=== PATIENT | male | born 1940 | race Caucasian/White ===

== ENCOUNTER → 2018-06-27 | Outpatient (CLI) | payer BC ==
--- NOTE | 2018-06-27 21:33 | MR ---
EXAMINATION TYPE: MR hip RT wo con DATE OF EXAM: 06/27/2018 COMPARISON: None HISTORY: Rt hip pain, osteoarthritis Standard multiplanar, multisequence MRI departmental protocol Multiplanar, multisequence images of the pelvis focusing on the right hip were acquired. FINDINGS: There is artifact from left hip surgery making evaluation of this level suboptimal. There is advanced degenerative change in the right hip with marked axial joint space loss. There is n ear [id number] formation. There is some flattening of the femoral head with serpiginous low T1 sign al paracoronal image 8 that shows T2 hyperintensity in the superior femoral head. No fragmented bony fragments clearly seen. Anterior 2.2 x 1.8 cm fluid collection at this level is presumed bursal in et iology with some internal debris, and measures 4.5 cm long axis coronal image 2. No increased fluid s ignal surrounds greater or lesser trochanters. Small joint effusion is noted. There is symmetric atrophy of the bilateral thigh muscles. Visualized pelvis shows no bowel dilatatio n. Prostate gland is not enlarged. Bladder is poorly distended. No groin hernias or adenopathy is not ed. 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
== END | disposition home or self-care (01) ==
LOC: RADMRIMAIN 16:20
PROVIDERS: ATTEND Internal Medicine Rheumatology
DX: M16.11 Unilateral primary osteoarthritis, right hip (principal); M71.551 Other bursitis, not elsewhere classified, right hip; M87.851 Other osteonecrosis, right femur

== ENCOUNTER → 2018-08-18 | Outpatient (CLI) | payer MEDICARE, BC ==
[2018-08-18 11:06] LABS: Anisocytosis Slight; HCT 41.6 % (39.0-53.0); HGB 13.4 gm/dL (13.0-17.5); MCH 32.8 pg (25.0-35.0); MCHC 32.2 g/dL (31.0-37.0); Macrocytosis Slight; Mean Platelet Volume 6.7; Platelet Count 414 k/uL (150-450); RBC 4.08 m/uL (4.30-5.90); RDW 16.5 % (11.5-15.5); WBC 11.2 k/uL (3.8-10.6)
[2018-08-18 11:13] LABS: Appearance,Urine Clear (Clear); Bilirubin,Urine Negative (Negative); Blood,Urine Negative (Negative); Color,Urine Yellow; Glucose,Urine (UA) Negative (Negative); Hyaline Casts,Urine 1 /lpf (0-2); Ketones,Urine Negative (Negative); Leukocyte Esterase,Urine Negative (Negative); Mucus,Urine Rare /hpf; Nitrite,Urine Negative (Negative); PH, Urine 6.5 (5.0-8.0); Protein,Urine 1+ (Negative); Squamous Epithelial Cell,Urine <1 /hpf (0-4); WBC,Urine 2 /hpf (0-5)
[2018-08-18 11:14] LABS: INR 0.9 (<1.2); Partial Thromboplastin Time 23.6 sec (22.0-30.0); Prothrombin Time 9.9 sec (9.0-12.0)
[2018-08-18 15:40] LABS: Anion Gap 10.5 mmol/L (4.00-12.00); Carbon Dioxide 27.5 mmol/L (21.6-31.8); Potassium 3.9 mmol/L (3.5-5.5)
== END ==
LOC: LABWHC1 10:26
PROVIDERS: ATTEND Orthopaedic Surgery
DX: Z01.818 Encounter for other preprocedural examination (principal); Z01.812 Encounter for preprocedural laboratory examination
CPT/HCPCS: 36415; 80051; 81001; 82565; 84520; 85027; 85610; 85730; 87070; 93005

== ENCOUNTER → 2018-09-01 | Outpatient (CLI) | payer MEDICARE, BC ==
--- NOTE | 2018-09-01 15:24 | XR ---
EXAMINATION TYPE: XR chest 2V DATE OF EXAM: 09/01/2018 COMPARISON: NONE HISTORY: Preoperative exam. History of tobacco abuse. TECHNIQUE: Frontal and lateral views of the chest are obtained. FINDINGS: There is no focal air space opacity, pleural effusion, or pneumothorax seen. There is inte rstitial prominence and pulmonary hyperinflation. The cardiac silhouette size is mildly enlarged. T he osseous structures are intact. Moderate multilevel degenerative changes of the thoracic spine are noted. IMPRESSION: 1. No focal consolidation to suggest pneumonia. 2. Interstitial prominence is reticular and may relate to subsegmental atelectasis however interstiti al lung disease is possible. 3. Findings suggesting COPD.
[2018-09-01 21:23] LABS: Hemoglobin A1C 6.3 % (4.0-6.0)
== END | disposition home or self-care (01) ==
LOC: LABWHC1 10:30
PROVIDERS: ATTEND Nurse Practitioner Family
DX: R91.8 Other nonspecific abnormal finding of lung field (principal); E11.9 Type 2 diabetes mellitus without complications; F17.200 Nicotine dependence, unspecified, uncomplicated
CPT/HCPCS: 36415; 71046; 83036

== ENCOUNTER → 2018-09-06 | Outpatient (CLI) | payer BC, MEDICARE | LOC: LABPAT 12:57 | PROVIDERS: ATTEND Orthopaedic Surgery | DX: Z01.812 Encounter for preprocedural laboratory examination (principal) | CPT/HCPCS: 36415; 86850; 86870; 86880; 86900; 86901 ==

== ENCOUNTER 2018-09-11 06:05 | Inpatient (IN) | payer MEDICARE, BC ==
[2018-09-05 14:01] VITALS: BMI 27.7
[~2018-09-11 06:05] MED LIST: ACETAMINOPHEN TAB 500 MG TAB PO ONE; CLINDAMYCIN 900 MG in DEXTROSE 5% IN WATER 50 ML IVPB ONE; ONDANSETRON 4 MG/2 ML VIAL IVP ONE; TRANEXAMIC ACID 1,000 MG in SODIUM CHLORIDE 0.9% 50 ML IVPB ONE; ceFAZolin IN SWFI 2 GM/20 ML SYRINGE IVP ONE
[2018-09-11] MEDS ORDERED: MIDAZOLAM (PF) 2 MG/2 ML VIAL IV PRN (06:21)
[2018-09-11] MEDS ORDERED: LACTATED RINGERS 1,000 ML IV SCH (06:21)
[2018-09-11] MEDS ORDERED: HYDROmorphone 0.5 MG/0.5 ML SYRINGE IVP PRN (06:21)
[2018-09-11] MEDS ORDERED: DEXAMETHASONE SOD PHOS (MDV) 100 MG/10 ML VIAL IV ONE (07:01)
[2018-09-11 07:09] LABS: Glucose,Whole Blood 114 mg/dL (75-99)
[2018-09-11 07:22] VITALS: BP 118/58; PULSE 68; RESP 18; TEMP 97.9
== END 2018-09-11 08:35 | disposition short-term general hospital (02) | DRG 554 ==
LOC: 2ORMAIN 06:05
PROVIDERS: ADMIT Orthopaedic Surgery; ATTEND Orthopaedic Surgery
DX: M16.11 Unilateral primary osteoarthritis, right hip (principal); I10 Essential (primary) hypertension; J44.9 Chronic obstructive pulmonary disease, unspecified; E78.5 Hyperlipidemia, unspecified; E11.9 Type 2 diabetes mellitus without complications; M06.9 Rheumatoid arthritis, unspecified; F17.200 Nicotine dependence, unspecified, uncomplicated; Z79.82 Long term (current) use of aspirin; Z79.84 Long term (current) use of oral hypoglycemic drugs; Z79.899 Other long term (current) drug therapy; Z88.0 Allergy status to penicillin; Z90.49 Acquired absence of other specified parts of digestive tract; Z53.09 Procedure and treatment not carried out because of other contraindication; R41.82 Altered mental status, unspecified
CPT/HCPCS: 36415; 86850; 86870; 86880; 86900; 86901

== ENCOUNTER 2018-09-11 08:42 | Inpatient (IN) | payer MEDICARE, BC ==
--- NOTE | 2018-09-11 09:17 | ED ---
General Adult HPI - General Chief complaint: Altered Mental Status Stated complaint: altered mental status Time Seen by Provider: 09/11/18 08:45 Source: patient, RN notes reviewed Mode of arrival: wheelchair Limitations: no limitations - History of Present Illness Initial comments: This is a 77-year-old male who presents emergency Department with altered mental status times one week. Family states he was here for a hip surgery when the conveyed to the staff upstairs in the OR that he had been altered for a week they decided to postpone the surgery and have them come down to get worked up. states she has not taken in to see anybody but has noted that over the last week he has become altered and confused sometimes being confused as to how to use his phone and also has become incontinent of urine over that period of time. Patient himself has had no complaints that are new. states his been no fever chills he does not appear to be have a cough there is been no shortness of breath. Patient has not complained of any chest pain or abdominal pain. states he has some increased fluid in his legs but that is been ongoing for 6 months. Patient states she has seen a apple checker for this increased edema. states at times his altered mental status does not appear to be as bad as other times. states his confusion is no worse today than it has been over the last week and she has not noted him to have any new complaints today or new symptoms today just what has been going on for the last week. Patient himself has no new complaints as far as pain or any new issues. - Related Data Home Medications Medication Instructions Recorded Confirmed Aspirin 81 mg PO DAILY 08/12/16 09/11/18 [place]-3 Fatty Acids/Fish Oil [Fish 1 each PO BID 08/12/16 09/11/18 Oil 1,000 mg Softgel] Simvastatin [Zocor] 80 mg PO HS 08/12/16 09/11/18 Ranitidine HCl [Zantac] 150 mg PO BID 08/13/16 09/11/18 Acetaminophen-Codeine 300-30mg 1 tab PO Q6H PRN 09/05/18 09/11/18 [Tylenol w/codeine #3] Adalimumab [Humira] 40 mg SQ Q14D 09/05/18 09/11/18 Atenolol [Tenormin] 50 mg PO DAILY 09/05/18 09/11/18 Calcium Carbonate [Calcium] 600 mg PO DAILY 09/05/18 09/11/18 Cholecalciferol (Vitamin D3) 2,000 unit PO DAILY 09/05/18 09/11/18 [Vitamin D3] Folic Acid 1 mg PO HS 09/05/18 09/11/18 Hydrochlorothiazide [Hydrodiuril] 25 mg PO DAILY 09/05/18 09/11/18 Ipratropium/Albuterol Sulfate 1 puff INHALATION RT-QID 09/05/18 09/11/18 [Combivent Respimat Inhaler] Methotrexate Sodium [Methotrexate] 10 tab PO FR 09/05/18 09/11/18 Multivitamins, Thera [Multivitamin 1 tab PO DAILY 09/05/18 09/11/18 (formulary)] Polyethylene Glycol 3350 [Miralax] 17 gm PO DAILY PRN 09/05/18 09/11/18 Potassium Chloride [Klor-Con 20] 20 meq PO DAILY 09/05/18 09/11/18 Sennosides-Docusate Sodium 1 tab PO BID PRN 09/05/18 09/11/18 [Senokot-S] guaiFENesin-DM 600/30MG [Mucinex 1 each PO Q12HR 09/05/18 09/11/18 Dm] metFORMIN HCL ER [Glucophage Xr] 500 mg PO DAILY 09/05/18 09/11/18 traMADol HCl [Ultram] 50 mg PO Q8H PRN 09/05/18 09/11/18 Allergies Allergy/AdvReac Type Severity Reaction Status Date / Time Penicillins Allergy Swelling Verified 09/11/18 09:00 Review of Systems ROS Statement: Those systems with pertinent positive or pertinent negative responses have been documented in the HPI. ROS Other: All systems not noted in ROS Statement are negative. Past Medical History Past Medical History: COPD, Diabetes Mellitus, Hyperlipidemia, Hypertension, Osteoarthritis (OA), Rheumatoid Arthritis (RA) Additional Past Medical History / Comment(s): cristino pitting edema cristino feet History of Any Multi-Drug Resistant Organisms: None Reported Past Surgical History: Cholecystectomy, Orthopedic Surgery Additional Past Surgical History / Comment(s): 08/17/16 acromioplasty excision distal clavicle rotator cuff repair R shoulder. Other surgical hx; repair abdominal aortic aneurysm, ORIF left femur Past Anesthesia/Blood Transfusion Reactions: No Reported Reaction Past Psychological History: No Psychological Hx Reported Smoking Status: Current every day smoker Past Alcohol Use History: None Reported Past Drug Use History: None Reported - Past Family History Mother Family Medical History: No Reported History Father Additional Family Medical History / Comment(s): Father had a significant heart murmur. General Exam - General Exam Comments Initial Comments: GENERAL: Patient is well-developed and well-nourished. Patient is nontoxic and well- hydrated and is in mild distress. ENT: Neck is soft and supple. No significant lymphadenopathy is noted. Oropharynx is clear. Moist mucous membranes. Neck has full range of motion without eliciting any pain. EYES: The sclera were anicteric and conjunctiva were pink and moist. Extraocular movements were intact and pupils were equal round and reactive to light. Eyelids were unremarkable. PULMONARY: Unlabored respirations. Good breath sounds bilaterally. No audible rales rhonchi or wheezing was noted. CARDIOVASCULAR: There is a regular rate and rhythm without any murmurs gallops or rubs. ABDOMEN: Soft and nontender with normal bowel sounds. No palpable organomegaly was noted. There is no palpable pulsatile mass. SKIN: Skin is clear with no lesions or rashes and otherwise unremarkable. NEUROLOGIC: Patient is alert and oriented 2. Cranial nerves II through XII are grossly intact. Motor and sensory are also intact. Normal speech, volume and content. Symmetrical smile. MUSCULOSKELETAL: Normal extremities with adequate strength and full range of motion. 2+ edema LYMPHATICS: No significant lymphadenopathy is noted PSYCHIATRIC: Normal psychiatric evaluation. Limitations: no limitations Course Vital Signs 09/11/18 09/11/18 09/11/18 08:47 09:00 10:00 Temperature 98.2 F Pulse Rate 75 77 71 Respiratory 18 18 18 Rate Blood Pressure 105/60 105/60 101/51 O2 Sat by Pulse 96 97 98 Oximetry 09/11/18 11:00 Temperature Pulse Rate 64 Respiratory 18 Rate Blood Pressure 95/49 O2 Sat by Pulse 96 Oximetry Medical Decision Making - Medical Decision Making EKG shows normal sinus rhythm at 76 bpm PA interval is 160 QRS is 86 QT interval 384 QTC is 432. Patient's EKG shows no ST segment elevation or depression or T wave abnormalities are noted. Chest x-ray shows a pneumonia at the left base. Patient's CAT scan of head was normal. Started the patient antibiotics. I spoke with the admitting physician Dr. Farr he agreed to admit the patient admitted the patient wrote admitting orders. I continued antibiotics on the floor and I consult to Dr. Petersen for pulmonary. - Lab Data Result diagrams: 09/11/18 10:00 09/11/18 10:00 Lab Results 09/11/18 09/11/18 09/11/18 Range/Units 10:00 10:00 10:00 WBC 14.1 H (3.8-10.6) k/uL RBC 3.71 L (4.30-5.90) m/uL Hgb 12.3 L (13.0-17.5) gm/dL Hct 37.5 L (39.0-53.0) % MCV 101.1 H (80.0-100.0) fL MCH 33.0 (25.0-35.0) pg MCHC 32.7 (31.0-37.0) g/dL RDW 15.0 (11.5-15.5) % Plt Count 392 (150-450) k/uL Neutrophils % 86 % Lymphocytes % 6 % Monocytes % 3 % Eosinophils % 1 % Basophils % 1 % Neutrophils # 12.1 H (1.3-7.7) k/uL Lymphocytes # 0.9 L (1.0-4.8) k/uL Monocytes # 0.5 (0-1.0) k/uL Eosinophils # 0.2 (0-0.7) k/uL Basophils # 0.1 (0-0.2) k/uL Macrocytosis Slight PT 10.3 (9.0-12.0) sec INR 1.0 (<1.2) APTT 24.2 (22.0-30.0) sec Sodium (137-145) mmol/L Potassium (3.5-5.1) mmol/L Chloride (98-107) mmol/L Carbon Dioxide (22-30) mmol/L Anion Gap mmol/L BUN (9-20) mg/dL Creatinine (0.66-1.25) mg/dL Est GFR (CKD-EPI)AfAm (>60 ml/min/1.73 sqM) Est GFR (CKD-EPI)NonAf (>60 ml/min/1.73 sqM) Glucose (74-99) mg/dL Calcium (8.4-10.2) mg/dL Total Bilirubin (0.2-1.3) mg/dL AST (17-59) U/L ALT (21-72) U/L Alkaline Phosphatase (38-126) U/L Total Creatine Kinase 34 L (55-170) U/L CK-MB (CK-2) 0.7 (0.0-2.4) ng/mL CK-MB (CK-2) Rel Index 2.1 Troponin I <0.012 (0.000-0.034) ng/mL Total Protein (6.3-8.2) g/dL Albumin (3.5-5.0) g/dL Urine Color Urine Appearance (Clear) Urine pH (5.0-8.0) Ur Specific [place] (1.001-1.035) Urine Protein (Negative) Urine Glucose (UA) (Negative) Urine Ketones (Negative) Urine Blood (Negative) Urine Nitrite (Negative) Urine Bilirubin (Negative) Urine Urobilinogen (<2.0) mg/dL Ur Leukocyte Esterase (Negative) Urine Opiates Screen (NotDetected) Ur Oxycodone Screen (NotDetected) Urine Methadone Screen (NotDetected) Ur Propoxyphene Screen (NotDetected) Ur Barbiturates Screen (NotDetected) U Tricyclic Antidepress (NotDetected) Ur Phencyclidine Scrn (NotDetected) Ur Amphetamines Screen (NotDetected) U Methamphetamines Scrn (NotDetected) U Benzodiazepines Scrn (NotDetected) Urine Cocaine Screen (NotDetected) U Marijuana (THC) Screen (NotDetected) 09/11/18 09/11/18 Range/Units 10:00 12:35 WBC (3.8-10.6) k/uL RBC (4.30-5.90) m/uL Hgb (13.0-17.5) gm/dL Hct (39.0-53.0) % MCV (80.0-100.0) fL MCH (25.0-35.0) pg MCHC (31.0-37.0) g/dL RDW (11.5-15.5) % Plt Count (150-450) k/uL Neutrophils % % Lymphocytes % % Monocytes % % Eosinophils % % Basophils % % Neutrophils # (1.3-7.7) k/uL Lymphocytes # (1.0-4.8) k/uL Monocytes # (0-1.0) k/uL Eosinophils # (0-0.7) k/uL Basophils # (0-0.2) k/uL Macrocytosis PT (9.0-12.0) sec INR (<1.2) APTT (22.0-30.0) sec Sodium 137 (137-145) mmol/L Potassium 4.1 (3.5-5.1) mmol/L Chloride 104 (98-107) mmol/L Carbon Dioxide 27 (22-30) mmol/L Anion Gap 6 mmol/L BUN 23 H (9-20) mg/dL Creatinine 0.96 (0.66-1.25) mg/dL Est GFR (CKD-EPI)AfAm 88 (>60 ml/min/1.73 sqM) Est GFR (CKD-EPI)NonAf 76 (>60 ml/min/1.73 sqM) Glucose 126 H (74-99) mg/dL Calcium 9.5 (8.4-10.2) mg/dL Total Bilirubin 1.0 (0.2-1.3) mg/dL AST 23 (17-59) U/L ALT 33 (21-72) U/L Alkaline Phosphatase 37 L (38-126) U/L Total Creatine Kinase (55-170) U/L CK-MB (CK-2) (0.0-2.4) ng/mL CK-MB (CK-2) Rel Index Troponin I (0.000-0.034) ng/mL Total Protein 5.8 L (6.3-8.2) g/dL Albumin 2.9 L (3.5-5.0) g/dL Urine Color Yellow Urine Appearance Clear (Clear) Urine pH 5.5 (5.0-8.0) Ur Specific [place] 1.021 (1.001-1.035) Urine Protein Trace H (Negative) Urine Glucose (UA) Negative (Negative) Urine Ketones 1+ H (Negative) Urine Blood Negative (Negative) Urine Nitrite Negative (Negative) Urine Bilirubin Negative (Negative) Urine Urobilinogen 2.0 (<2.0) mg/dL Ur Leukocyte Esterase Negative (Negative) Urine Opiates Screen Detected H (NotDetected) Ur Oxycodone Screen Not Detected (NotDetected) Urine Methadone Screen Not Detected (NotDetected) Ur Propoxyphene Screen Not Detected (NotDetected) Ur Barbiturates Screen Not Detected (NotDetected) U Tricyclic Antidepress Not Detected (NotDetected) Ur Phencyclidine Scrn Not Detected (NotDetected) Ur Amphetamines Screen Not Detected (NotDetected) U Methamphetamines Scrn Not Detected (NotDetected) U Benzodiazepines Scrn Not Detected (NotDetected) Urine Cocaine Screen Not Detected (NotDetected) U Marijuana (THC) Screen Not Detected (NotDetected) Disposition Clinical Impression: Pneumonia, Altered mental status Disposition: ADMITTED IP TO THIS HOSP Referrals: Jaime Gavin MD [Primary Care Provider] - 1-2 days Time of Disposition: 13:32
[2018-09-11 10:22] LABS: Basophils # (A) 0.1 k/uL (0-0.2); Basophils % (A) 1 %; Eosinophils # (A) 0.2 k/uL (0-0.7); Eosinophils % (A) 1 %; HCT 37.5 % (39.0-53.0); HGB 12.3 gm/dL (13.0-17.5); Lymphocytes # (A) 0.9 k/uL (1.0-4.8); Lymphocytes % (A) 6 %; MCHC 32.7 g/dL (31.0-37.0); MCV 101.1 fL (80.0-100.0); Macrocytosis Slight; Mean Platelet Volume 6.8; Monocytes # (A) 0.5 k/uL (0-1.0); Monocytes % (A) 3 %; Neutrophils # (A) 12.1 k/uL (1.3-7.7); Neutrophils % (A) 86 %; Platelet Count 392 k/uL (150-450); RBC 3.71 m/uL (4.30-5.90); WBC 14.1 k/uL (3.8-10.6)
--- NOTE | 2018-09-11 10:28 | XR ---
EXAMINATION TYPE: XR chest 2V DATE OF EXAM: 09/11/2018 COMPARISON: Chest x-ray 10 days ago. HISTORY: Altered mental status and weakness. TECHNIQUE: Frontal and lateral views of the chest are obtained. FINDINGS: There is persistent interstitial prominence bilaterally most prominent in the bases with sl ightly more prominent left basilar opacity. There is new small left pleural effusion. Cardiac silho uette size is stable and upper limits of normal with atherosclerotic change in thoracic aorta. The os seous structures are demineralized. Multilevel spurring in the spine is redemonstrated. IMPRESSION: Interstitial changes favor chronic fibrosis most prominent in the bases with new small l eft pleural effusion and developing left basilar acute infiltrate and/or atelectasis noted.
[2018-09-11 10:29] LABS: Partial Thromboplastin Time 24.2 sec (22.0-30.0); Prothrombin Time 10.3 sec (9.0-12.0)
--- NOTE | 2018-09-11 10:30 | CT ---
EXAMINATION TYPE: CT brain wo con DATE OF EXAM: 09/11/2018 HISTORY: Altered mental status, confusion for [address] DLP: 1086.4 mGycm. Automated Exposure Control for Dose Reduction was Utilized. TECHNIQUE: CT scan of the head is performed without contrast. COMPARISON: None. FINDINGS: There is no acute intracranial hemorrhage or midline shift identified. There is diffuse v entricular and sulcal prominence consistent with diffuse age-related cerebral atrophy. There is low- attenuation in the periventricular white matter consistent with chronic small vessel ischemic change. Scleral calcification both globes is present. Visualized paranasal sinuses show near complete opac ification of left sphenoid sinus otherwise are clear. Suspect mild to moderate mucosal thickening wit h large mucous retention cyst or polyp. Vascular calcification distal internal carotid arteries bilat erally is present. IMPRESSION: No acute intracranial hemorrhage or midline shift. There is mild to moderate diffuse ag e-related cerebral atrophy and mild chronic small vessel ischemic change noted.
[2018-09-11 10:32] LABS: Creatine Kinase 34 U/L (55-170)
[2018-09-11 10:45] LABS: Creatine Kinase MB 0.7 ng/mL (0.0-2.4); Troponin I <0.012 ng/mL (0.000-0.034)
[2018-09-11 11:11] LABS: Albumin 2.9 g/dL (3.5-5.0); Calcium 9.5 mg/dL (8.4-10.2); Potassium 4.1 mmol/L (3.5-5.1); Total Protein 5.8 g/dL (6.3-8.2)
[2018-09-11 13:06] LABS: Appearance,Urine Clear (Clear); Bilirubin,Urine Negative (Negative); Blood,Urine Negative (Negative); Color,Urine Yellow; Glucose,Urine (UA) Negative (Negative); Ketones,Urine 1+ (Negative); Leukocyte Esterase,Urine Negative (Negative); Nitrite,Urine Negative (Negative); PH, Urine 5.5 (5.0-8.0); Protein,Urine Trace (Negative); Specific Gravity,Urine 1.021 (1.001-1.035)
[2018-09-11 13:18] LABS: Cocaine Screen,Urine Not Detected (NotDetected); Opiate Screen,Urine Detected (NotDetected); Phencyclidine Screen,Urine Not Detected (NotDetected); Urn Cannabinoid Scrn Not Detected (NotDetected)
[2018-09-11 13:19] LABS: Amphetamine Screen,Urine Not Detected (NotDetected); Barbiturate Screen,Urine Not Detected (NotDetected); Benzodiazepines Screen,Urine Not Detected (NotDetected); Methadone Screen, Urine Not Detected (NotDetected); Oxycodone Screen, Urine Not Detected (NotDetected); Tricyclic Antidepressant,Urine Not Detected (NotDetected)
[2018-09-11] MEDS ORDERED: cefTRIAXone 2,000 MG in SODIUM CHLORIDE 0.9% 100 ML IVPB STA (13:27)
[2018-09-11] MEDS ORDERED: AZITHROMYCIN 500 MG in SODIUM CHLORIDE 0.9% 250 ML IVPB STA (13:33)
[2018-09-11] MEDS ORDERED: PNEUMONIA PROTOCOL UTILIZED 1 EACH MISC PO PRN (13:33)
[2018-09-11] MEDS ORDERED: SENNOSIDES-DOCUSATE SODIUM 1 EACH TAB PO PRN (14:33)
[2018-09-11] MEDS ORDERED: traMADol 50 MG TAB PO PRN (14:33)
[2018-09-11] MEDS ORDERED: POLYETHYLENE GLYCOL 3350 17 GM POWD.PACK PO PRN (14:33)
[2018-09-11] MEDS: IPRATROPIUM-ALBUTEROL 3 ML NEB INHALATION SCH ×2 (15:19→22:10)
[2018-09-11 16:50] LABS: Glucose,Whole Blood 170 mg/dL (75-99)
[2018-09-11] MEDS: HYDROCHLOROTHIAZIDE 25 MG TAB PO SCH (18:02)
[2018-09-11] MEDS: ASPIRIN 81 MG PO SCH ×2 (18:02→18:05)
[2018-09-11] MEDS: metFORMIN 500 MG TAB PO SCH (18:03)
[2018-09-11] MEDS: MULTIVITAMINS, THERA 1 EACH TAB PO SCH (18:03)
[2018-09-11] MEDS: ATENOLOL 50 MG TAB PO SCH (18:03)
[2018-09-11] MEDS: INSULIN ASPART 100 UNIT/ML 1 ML 10 ML VIAL SQ SCH ×2 (18:41→22:47)
[2018-09-11] MEDS: ATORVASTATIN 40 MG TAB PO SCH (20:26)
[2018-09-11] MEDS: FOLIC ACID 1 MG TAB PO SCH (20:26)
[2018-09-11] MEDS: FAMOTIDINE 20 MG TAB PO SCH (20:27)
[2018-09-11] MEDS: guaiFENesin-DM 600/30MG 1 EACH TAB.ER.12H PO SCH (20:28)
[2018-09-11 21:34] LABS: Glucose,Whole Blood 157 mg/dL (75-99)
[2018-09-11] MEDS ORDERED: MAGNESIUM HYDROXIDE 2,400 MG/10 ML CUP PO PRN (22:27)
[2018-09-11] MEDS ORDERED: BISACODYL 5 MG TABLET.DR PO PRN (22:27)
[2018-09-11] MEDS ORDERED: LACTULOSE 20 GM/30 ML CUP PO PRN (22:27)
[2018-09-11] MEDS ORDERED: NALOXONE 0.4 MG/ML 1 ML VIAL IV PRN (22:27)
[2018-09-11] MEDS ORDERED: CALCIUM CARBONATE 500 MG CHEWABLE PO PRN (22:27)
[2018-09-11] MEDS ORDERED: MELATONIN 3 MG TABLET PO PRN (22:27)
[2018-09-11] MEDS ORDERED: ONDANSETRON 4 MG/2 ML VIAL IVP PRN (22:27)
[2018-09-11] MEDS: ENOXAPARIN 40 MG/0.4 ML SYRINGE SQ SCH (23:30)
--- NOTE | 2018-09-12 00:06 | HP ---
HISTORY AND PHYSICAL PRESENT COMPLAINT: Cough. HISTORY OF PRESENTING COMPLAINT: This is a pleasant 77-year-old patient who follows with Dr. Gavin. Chronic stable medical conditions include diabetes, COPD, hypertension, hyperlipidemia. The patient was scheduled to come in and have hip surgery done but the patient's conveyed to the staff in the OR that the patient has not been himself for about a week and somewhat confused. The patient was sent down to the ER for further workup. The patient had a cough. does not report any fever or chills. The patient does feel slightly short of breath. The patient was also noticed to have some increasing fluid in the lower extremity and patient has been seen by the golf course designer for the same. The patient has been a bit more confused. The patient's appetite has been okay. The patient really is not able to give much of a history except he can answer some questions, but he is not sure why he is here or what he is here for. REVIEW OF SYSTEMS: CONSTITUTIONAL: Tired. HEENT: None. RESPIRATORY: As above. CARDIOVASCULAR: Some edema. GASTROINTESTINAL: None. GENITOURINARY: None. MUSCULOSKELETAL: Arthritic pain in the joints. DERMATOLOGICAL: None. HEMATOLOGIC: None. LYMPHATICS: None. PSYCHIATRY: As above. NEUROLOGICAL: None. PAST MEDICAL HISTORY: Past medical history includes COPD, diabetes mellitus type 2, hyperlipidemia, hypertension, osteoarthritis, edema of the lower extremity, urinary incontinence. PAST SURGICAL HISTORY: Cholecystectomy, acromioplasty of distal clavicular rotator cuff on the right shoulder, repair of the abdominal aortic aneurysm, incisional hernia, ORIF of the left femur. SOCIAL HISTORY: The patient is retired. Smoked half to a pack a day for more than 50 years, now down to few cigarettes a day. Alcohol none. Patient is retired. FAMILY HISTORY: Reviewed, noncontributory to presentation. HOME MEDICATIONS: 1. Methotrexate 25 mg on Fridays. 2. Humira 40 mg subcu every 14 days. 3. Tylenol 3 one tablet every 6 hours p.r.n. 4. Multivitamin 1 tablet p.o. daily. 5. Combivent 1 puff q.i.d. 6. Tenormin 50 mg p.o. daily. 7. Aspirin 81 mg p.o. daily. 8. Ultram 50 mg every 8 hours p.r.n. 9. Glucophage XR 500 mg p.o. daily. 10.Mucinex DM 1 tablet p.o. every 12 hours. 11.Zocor 80 mg at bedtime. 12.Senokot S 1 tablet p.o. b.i.d. p.r.n. 13.Zantac 150 mg p.o. b.i.d. 14.Potassium 20 mEq a day. 15.MiraLAX 17 grams p.o. daily p.r.n. 16.Fish oil 1 tablet p.o. b.i.d. 17.Hydrochlorothiazide 25 mg p.o. daily. 18.Folic acid 1 mg p.o. at bedtime. 19.Vitamin D3, 2000 units p.o. daily. 20.Calcium 600 mg p.o. daily. ALLERGIES: PENICILLIN. PHYSICAL EXAMINATION: Temperature 98.2, pulse 75, respiratory rate 18, blood pressure 105/60, pulse ox 96% on room air. GENERAL APPEARANCE: Average build, lying in bed, not in distress. EYES: Pupils equal. Conjunctivae normal. HEENT: External appearance of ears and nose normal. Oral cavity normal. NECK: JVD not raised. Mass not palpable. Respiratory effort increased. LUNGS: Decreased breath sounds at the bases. Some questionable crackles. CARDIOVASCULAR: 1st and 2nd sound. Edema present. ABDOMEN: Soft, nontender. Liver and spleen not palpable. LYMPHATIC: No lymph nodes palpable in the neck or axilla. PSYCHIATRY: He cannot tell why exactly he is here or what place this is, but can answer some other questions. NEUROLOGICAL: Pupils equal. Cranial nerves grossly intact. Power and sensation grossly intact. MUSCULOSKELETAL: Evidence of osteoarthritis, especially in the hands. INVESTIGATIONS: White count 14.1, hemoglobin 12.3 potassium 4.1 BUN 22 creatinine 0.96. Accu-Cheks are noted. Chest x-ray film personally reviewed by me shows bilateral basal infiltrates and possible effusion. EKG tracing reviewed by me shows normal sinus rhythm. ASSESSMENT: 1. Basilar pneumonia suspect gram-negative organism, present on admission. 2. Evaluate the patient for congestive heart failure. 3. Diabetes mellitus type 2 on oral hypoglycemic. 4. Chronic obstructive pulmonary disease in a current smoker. 5. Chronic nicotine dependence, patient is a cigarette smoker. 6. Hyperlipidemia. 7. Essential hypertension. 8. Primary osteoarthritis. 9. Acute delirium, probably from underlying pneumonia, cannot rule out underlying cognitive impairment. PLAN: Home medications are resumed. Patient is started on IV ceftriaxone. Accu-Cheks will be followed. Will check a BNP in the morning and also do an echocardiogram. Also give IV Lasix 1 dose to see how patient responds to the same. Lovenox for DVT prophylaxis. Currently no family is present. The patient also put on bronchodilators. MMODL / IJN: [id number] /
[2018-09-12] MEDS: NICOTINE 21MG/24HR PATCH TRANSDERM SCH ×3 (05:40→22:58)
[2018-09-12] MEDS: IPRATROPIUM-ALBUTEROL 3 ML NEB INHALATION SCH ×4 (07:11→20:04)
[2018-09-12] MEDS: INSULIN ASPART 100 UNIT/ML 1 ML 10 ML VIAL SQ SCH ×4 (07:32→21:28)
[2018-09-12 07:33] LABS: Glucose,Whole Blood 101 mg/dL (75-99)
[2018-09-12] MEDS: FAMOTIDINE 20 MG TAB PO SCH ×2 (08:05→21:28)
[2018-09-12] MEDS: POTASSIUM CHLORIDE ER 20 MEQ TAB.ER PO SCH (08:05)
[2018-09-12] MEDS: metFORMIN 500 MG TAB PO SCH (08:05)
[2018-09-12] MEDS: MULTIVITAMINS, THERA 1 EACH TAB PO SCH (08:05)
[2018-09-12] MEDS: ATENOLOL 50 MG TAB PO SCH (08:05)
[2018-09-12] MEDS: HYDROCHLOROTHIAZIDE 25 MG TAB PO SCH (08:05)
[2018-09-12] MEDS: ASPIRIN 81 MG PO SCH (08:05)
[2018-09-12] MEDS: AZITHROMYCIN 500 MG TAB PO SCH (08:05)
[2018-09-12] MEDS: guaiFENesin-DM 600/30MG 1 EACH TAB.ER.12H PO SCH ×2 (08:46→21:34)
[2018-09-12 08:52] LABS: Basophils # (A) 0.1 k/uL (0-0.2); Basophils % (A) 1 %; Eosinophils # (A) 0.2 k/uL (0-0.7); Eosinophils % (A) 1 %; HCT 35.5 % (39.0-53.0); HGB 11.6 gm/dL (13.0-17.5); Hypochromasia Slight; Lymphocytes # (A) 2.5 k/uL (1.0-4.8); Lymphocytes % (A) 15 %; MCH 33.8 pg (25.0-35.0); MCHC 32.8 g/dL (31.0-37.0); MCV 103.2 fL (80.0-100.0); Macrocytosis Slight; Mean Platelet Volume 6.9; Monocytes # (A) 1.4 k/uL (0-1.0); Monocytes % (A) 9 %; Neutrophils # (A) 11.7 k/uL (1.3-7.7); Neutrophils % (A) 71 %; Platelet Count 436 k/uL (150-450); RBC 3.44 m/uL (4.30-5.90); RDW 15.1 % (11.5-15.5); WBC 16.6 k/uL (3.8-10.6)
[2018-09-12] MEDS ORDERED: FUROSEMIDE 10 MG/ML 4 ML VIAL IV SCH (09:00)
--- NOTE | 2018-09-12 10:03 | XR ---
EXAMINATION TYPE: XR chest 2V DATE OF EXAM: 09/12/2018 COMPARISON: Chest x-ray from yesterday and older x-ray 10 days ago. HISTORY: Pneumonia progress study. TECHNIQUE: Frontal and lateral views of the chest are obtained. FINDINGS: There is persistent reticular interstitial prominence bilaterally most prominent in the lo wer lungs. There is additional persistent posterior basilar opacity seen best on lateral view new fr om older x-ray. No pleural effusion or pneumothorax is present bilaterally. The cardiac silhouette si ze is stable and within normal limits with atherosclerotic thoracic aorta. The osseous structures a re demineralized. Multilevel spurring in thoracic spine is redemonstrated. IMPRESSION: Persistent posterior basilar acute infiltrate suspected on background chronic interstiti al changes. No significant change from most recent chest x-ray.
--- NOTE | 2018-09-12 10:30 | ECHOF ---
Referral Reason:chf MEASUREMENTS -------- HEIGHT: 172.7 cm WEIGHT: 85.7 kg BP: RVIDd: 2.8 cm (< 3.3) IVSd: 1.3 cm (0.6 - 1.1) LVIDd: 4.6 cm (3.9 - 5.3) LVPWd: 1.4 cm (0.6 - 1.1) IVSs: 1.6 cm LVIDs: 3.5 cm LVPWs: 1.7 cm LAESV Index (A-L): 22.68 ml/m Ao Diam: 3.3 cm (2.0 - 3.7) AV Cusp: 1.5 cm (1.5 - 2.6) LA Diam: 3.6 cm (2.7 - 3.8) MV EXCURSION: 20.130 mm (> 18.000) MV EF SLOPE: 79 mm/s (70 - 150) EPSS: 0.7 cm MV E Gennaro: 0.93 m/s MV DecT: 167 ms MV A Gennaro: 0.98 m/s MV E/A Ratio: 0.95 AV maxP.93 mmHg AV meanP.90 mmHg FINDINGS -------- Sinus rhythm. This was a techncally difficult study with suboptimal views, , Definity utilized for enhancement of i mages. The left ventricular size is normal. There is mild concentric left ventricular hypertrophy. Overa ll left ventricular systolic function is normal with, an EF between 55 - 60 %. The right ventricle is normal in size. The left atrial size is normal. The right atrial size is normal. 1.5MG OF DEFINITY UTLIZED: 2 OR MORE WALL SEGMENTS NOT VISUALIZED. The aortic valve was not well visualized. There is mild aortic stenosis present. Peak/mean gradie nt across the Aortic Valve is 19.93mmHg / 9.90mmHg. Mild mitral annular calcification present. Mild mitral regurgitation is present. Mild tricuspid regurgitation present. There is no evidence of pulmonary hypertension. The right v entricular systolic pressure, as measured by Doppler, is {RVSP}. The pulmonic valve was not well visualized. The aortic root size is normal. There is no pericardial effusion. CONCLUSIONS -------- 1. This was a techncally difficult study with suboptimal views, , Definity utilized for enhancement o f images. 2. The left ventricular size is normal. 3. There is mild concentric left ventricular hypertrophy. 4. Overall left ventricular systolic function is normal with, an EF between 55 - 60 %. 5. The right ventricle is normal in size. 6. The left atrial size is normal. 7. The right atrial size is normal. 8. 1.5MG OF DEFINITY UTLIZED: 2 OR MORE WALL SEGMENTS NOT VISUALIZED. 9. The aortic valve was not well visualized. 10. There is mild aortic stenosis present. 11. Peak/mean gradient across the Aortic Valve is 19.93mmHg / 9.90mmHg. 12. Mild mitral annular calcification present. 13. Mild mitral regurgitation is present. 14. Mild tricuspid regurgitation present. 15. There is no evidence of pulmonary hypertension. 16. The right ventricular systolic pressure, as measured by Doppler, is {RVSP}. 17. The pulmonic valve was not well visualized. 18. The aortic root size is normal. 19. There is no pericardial effusion. BANK SECRECY ACT OFFICER: Tasneem Corbett RDCS
[2018-09-12 12:39] LABS: Glucose,Whole Blood 104 mg/dL (75-99)
[2018-09-12 17:14] LABS: Glucose,Whole Blood 117 mg/dL (75-99)
[2018-09-12 21:18] LABS: Glucose,Whole Blood 153 mg/dL (75-99)
[2018-09-12] MEDS: FOLIC ACID 1 MG TAB PO SCH (21:28)
[2018-09-12] MEDS: ENOXAPARIN 40 MG/0.4 ML SYRINGE SQ SCH (21:28)
[2018-09-12] MEDS: ATORVASTATIN 40 MG TAB PO SCH (21:28)
[2018-09-12] MEDS: ALPRAZolam 0.25 MG TAB PO PRN (21:29)
[2018-09-12] MEDS: Acetaminophen-Codeine 300-30mg TAB PO PRN (21:29)
--- NOTE | 2018-09-13 00:22 | PN ---
PROGRESS NOTE DATE OF SERVICE: September 12, 2018 PRESENTING COMPLAINT: Short of breath. INTERVAL HISTORY: This patient who is due to go for hip surgery presented with bilateral pneumonia and also felt to be congestive heart failure. The patient is on antibiotics. Did get a dose of Lasix this morning. Feeling somewhat better this morning. Sitting up in a chair. is present. The patient also was delirious, somewhat better this morning. Still has got edema. Did tolerate some breakfast. does state that patient had quite a bit of cough at home. REVIEW OF SYSTEMS: Done for constitutional, cardiovascular, GI, pulmonary and relevant findings as above. CURRENT MEDICATIONS: Reviewed that include IV ceftriaxone. PHYSICAL EXAMINATION: VITAL SIGNS: Temperature 98.2, pulse 75, respiratory 18, blood pressure 105/60. Pulse ox 96% on room air. GENERAL APPEARANCE: Sitting up in a chair, more perky. EYES: Pupils equal. Conjunctivae normal. NECK: JVD raised. Mass not palpable. RESPIRATORY: Effort increased. Lungs, some basal crackles. CARDIOVASCULAR: 1st and 2nd sounds normal. No edema present. ABDOMEN: Soft, nontender. Liver and spleen not palpable. PSYCHIATRY: The patient is more oriented this morning, though not really back to normal. INVESTIGATIONS: White count 16.6, hemoglobin 11.6. ProBNP 2930. ASSESSMENT: 1. Bibasilar pneumonia suspect gram-negative organism present on admission. 2. Acute congestive heart failure exacerbation from diastolic dysfunction. Ejection fraction 55-60 percent. 3. Diabetes mellitus type 2 on oral hypoglycemic. 4. Chronic obstructive pulmonary disease in a current smoker. 5. Chronic nicotine dependence, patient is a cigarette smoker. 6. Hyperlipidemia. 7. Essential hypertension. 8. Primary osteoarthritis. 9. Acute delirium, likely from underlying pneumonia with some improvement. PLAN: We will put the patient on IV Lasix 40 mg q.8 for 3 doses. Antibiotics are to continue. Expect the patient to be in the hospital for another couple of days at least. Follow. MMODL / IJN: [id number] /
[2018-09-13] MEDS: FUROSEMIDE 10 MG/ML 4 ML VIAL IV SCH ×3 (06:12→21:07)
[2018-09-13] MEDS: ACETAMINOPHEN TAB 325 MG TAB PO PRN ×2 (06:12→16:21)
[2018-09-13] MEDS: IPRATROPIUM-ALBUTEROL 3 ML NEB INHALATION SCH ×4 (07:11→19:33)
[2018-09-13 07:34] LABS: Glucose,Whole Blood 100 mg/dL (75-99)
[2018-09-13] MEDS: INSULIN ASPART 100 UNIT/ML 1 ML 10 ML VIAL SQ SCH ×4 (08:06→21:07)
[2018-09-13] MEDS: ASPIRIN 81 MG PO SCH (08:20)
[2018-09-13] MEDS: FAMOTIDINE 20 MG TAB PO SCH ×2 (08:21→21:03)
[2018-09-13] MEDS: guaiFENesin-DM 600/30MG 1 EACH TAB.ER.12H PO SCH ×2 (08:21→21:07)
[2018-09-13] MEDS: POTASSIUM CHLORIDE ER 20 MEQ TAB.ER PO SCH (08:21)
[2018-09-13] MEDS: metFORMIN 500 MG TAB PO SCH (08:21)
[2018-09-13] MEDS: AZITHROMYCIN 500 MG TAB PO SCH (08:21)
[2018-09-13] MEDS: ATENOLOL 50 MG TAB PO SCH (08:21)
[2018-09-13 08:49] LABS: Basophils # (A) 0.1 k/uL (0-0.2); Basophils % (A) 1 %; Eosinophils # (A) 0.7 k/uL (0-0.7); Eosinophils % (A) 6 %; HCT 35.4 % (39.0-53.0); Lymphocytes # (A) 1.8 k/uL (1.0-4.8); Lymphocytes % (A) 16 %; MCV 99.9 fL (80.0-100.0); Macrocytosis Slight; Mean Platelet Volume 7.5; Monocytes # (A) 1.2 k/uL (0-1.0); Monocytes % (A) 10 %; Neutrophils # (A) 7.5 k/uL (1.3-7.7); Neutrophils % (A) 65 %; Platelet Count 461 k/uL (150-450); RBC 3.54 m/uL (4.30-5.90); RDW 14.9 % (11.5-15.5); WBC 11.6 k/uL (3.8-10.6)
[2018-09-13 09:03] LABS: Calcium 9.2 mg/dL (8.4-10.2); Potassium 3.7 mmol/L (3.5-5.1)
[2018-09-13 11:42] LABS: Glucose,Whole Blood 139 mg/dL (75-99)
[2018-09-13] MEDS: MULTIVITAMINS, THERA 1 EACH TAB PO SCH (12:42)
[2018-09-13 17:32] LABS: Glucose,Whole Blood 144 mg/dL (75-99)
[2018-09-13 20:32] LABS: Glucose,Whole Blood 169 mg/dL (75-99)
[2018-09-13] MEDS: FOLIC ACID 1 MG TAB PO SCH (21:03)
[2018-09-13] MEDS: ATORVASTATIN 40 MG TAB PO SCH (21:03)
[2018-09-13] MEDS: ENOXAPARIN 40 MG/0.4 ML SYRINGE SQ SCH (21:04)
[2018-09-13] MEDS: NICOTINE 21MG/24HR PATCH TRANSDERM SCH (21:04)
[2018-09-14] MEDS: ACETAMINOPHEN TAB 325 MG TAB PO PRN (01:49)
--- NOTE | 2018-09-14 01:59 | PN ---
PROGRESS NOTE DATE OF SERVICE: September 13, 2018. PRESENTING COMPLAINT: Short of breath. INTERVAL HISTORY: This patient was seen by me yesterday afternoon. Admitted with bilateral pneumonia and CHF exacerbation. Ejection fraction is currently preserved. The patient's edema is going down. Patient did diurese well. The patient's and daughter are present. The patient does seem to have underlying cognitive impairment. Delirium is somewhat better. Did tolerate his diet, sitting up in a chair. REVIEW OF SYSTEMS: Done for constitutional, cardiovascular, GI, pulmonary; relevant findings as above. CURRENT MEDICATIONS: Reviewed that include IV ceftriaxone and IV Lasix that was given yesterday. PHYSICAL EXAMINATION: VITAL SIGNS: Temperature 97.9, pulse 80, respiration 16, blood pressure 114/69. Pulse ox 93% on room air. GENERAL APPEARANCE: Sitting up in a chair, feeling looking better. EYES: Pupils equal. Conjunctivae normal. NECK: JVD not raised. Mass not palpable. RESPIRATORY: Effort increased. Lungs, some basal crackles. CARDIOVASCULAR: 1st and 2nd sounds normal. Decreased edema. ABDOMEN: Soft, nontender. Liver and spleen not palpable. PSYCHIATRY: The patient is able answer some questions. Sometimes he is slow. INVESTIGATIONS: No blood work from today. Accu-Cheks are noted. ASSESSMENT: 1. Bibasilar pneumonia suspect gram-negative organism present on admission with clinical response. 2. Acute congestive heart failure exacerbation from diastolic dysfunction EF 55-60 percent improving. 3. Diabetes mellitus type 2 on oral hypoglycemia. 4. Chronic obstructive pulmonary disease in a current smoker. 5. Chronic nicotine dependence, patient is a cigarette smoker. 6. Hyperlipidemia. 7. Essential hypertension. 8. Primary osteoarthritis. 9. Acute delirium, likely underlying pneumonia with some improvement. 10.Suspect underlying mild cognitive impairment. PLAN: The patient's care was discussed at length with the patient and and family. Continue with IV antibiotics. We will give another dose of IV Lasix in the morning. Repeat a chest x-ray, BNP, CBC in the morning and determine from there. MMODL / IJN: [id number] /
[2018-09-14] MEDS: INSULIN ASPART 100 UNIT/ML 1 ML 10 ML VIAL SQ SCH ×4 (07:18→22:19)
[2018-09-14 07:20] LABS: Glucose,Whole Blood 123 mg/dL (75-99)
[2018-09-14] MEDS: POTASSIUM CHLORIDE ER 20 MEQ TAB.ER PO SCH (07:55)
[2018-09-14] MEDS: guaiFENesin-DM 600/30MG 1 EACH TAB.ER.12H PO SCH ×2 (07:55→22:07)
[2018-09-14] MEDS: ASPIRIN 81 MG PO SCH (07:55)
[2018-09-14] MEDS: MULTIVITAMINS, THERA 1 EACH TAB PO SCH (07:55)
[2018-09-14] MEDS: ATENOLOL 50 MG TAB PO SCH (07:55)
[2018-09-14] MEDS: AZITHROMYCIN 500 MG TAB PO SCH (07:55)
[2018-09-14] MEDS: FAMOTIDINE 20 MG TAB PO SCH ×2 (07:55→22:07)
[2018-09-14] MEDS: metFORMIN 500 MG TAB PO SCH (07:55)
[2018-09-14] MEDS: Acetaminophen-Codeine 300-30mg TAB PO PRN ×2 (08:40→16:44)
[2018-09-14] MEDS: IPRATROPIUM-ALBUTEROL 3 ML NEB INHALATION SCH ×4 (08:45→20:55)
[2018-09-14] MEDS ORDERED: FUROSEMIDE 10 MG/ML 4 ML VIAL IV SCH (09:00)
[2018-09-14 09:35] LABS: Basophils # (A) 0.2 k/uL (0-0.2); Basophils % (A) 1 %; Eosinophils # (A) 0.7 k/uL (0-0.7); Eosinophils % (A) 6 %; HCT 40.4 % (39.0-53.0); HGB 13.4 gm/dL (13.0-17.5); Lymphocytes # (A) 1.8 k/uL (1.0-4.8); Lymphocytes % (A) 15 %; MCH 33.1 pg (25.0-35.0); MCHC 33.1 g/dL (31.0-37.0); Macrocytosis Slight; Mean Platelet Volume 6.9; Monocytes # (A) 0.9 k/uL (0-1.0); Monocytes % (A) 8 %; Neutrophils # (A) 7.8 k/uL (1.3-7.7); Neutrophils % (A) 66 %; Platelet Count 547 k/uL (150-450); RBC 4.04 m/uL (4.30-5.90); WBC 11.8 k/uL (3.8-10.6)
[2018-09-14 10:04] LABS: Calcium 9.6 mg/dL (8.4-10.2)
[2018-09-14 11:47] LABS: Glucose,Whole Blood 126 mg/dL (75-99)
--- NOTE | 2018-09-14 12:34 | XR ---
EXAMINATION TYPE: XR chest 2V DATE OF EXAM: 09/14/2018 COMPARISON: 09/12/2018 INDICATION: Pneumonia TECHNIQUE: Frontal and lateral views of the chest are obtained. FINDINGS: The heart size is normal. The pulmonary vasculature is normal. There is a left lower lobe infiltrate present previously. This is improving. Continued follow-up is r ecommended. IMPRESSION: 1. Improving left lower lobe infiltrate which can be compatible with pneumonia. Continued follow-up i s recommended to clearing.
[2018-09-14 17:24] LABS: Glucose,Whole Blood 159 mg/dL (75-99)
[2018-09-14 21:02] LABS: Glucose,Whole Blood 143 mg/dL (75-99)
[2018-09-14] MEDS: ATORVASTATIN 40 MG TAB PO SCH (22:06)
[2018-09-14] MEDS: ENOXAPARIN 40 MG/0.4 ML SYRINGE SQ SCH (22:07)
[2018-09-14] MEDS: FOLIC ACID 1 MG TAB PO SCH (22:07)
[2018-09-14] MEDS: NICOTINE 21MG/24HR PATCH TRANSDERM SCH (22:09)
--- NOTE | 2018-09-14 23:03 | PN ---
PROGRESS NOTE DATE OF SERVICE: 09/14/2018. PRESENTING COMPLAINT: Short of breath. INTERVAL HISTORY: The patient was admitted with pneumonia and CHF exacerbation. Edema has greatly gone down. The patient is tired. Sputum production has gone down. Eating fine. Patient also felt to have underlying delirium and some cognitive impairment. REVIEW OF SYSTEMS: Done for constitutional, cardiovascular, GI, pulmonary; relevant findings as above. CURRENT MEDICATIONS: Reviewed, that include IV ceftriaxone, IV Lasix. PHYSICAL EXAMINATION: Temperature 98, pulse 78, respirations 16, blood pressure 115/56, pulse ox 94 percent room air. GENERAL APPEARANCE: Lying in bed, a bit tired-appearing. EYES: Pupils equal. Conjunctivae normal. NECK: JVD not raised. Mass not palpable. Respiratory effort increased. LUNGS: Improved air entry. CARDIOVASCULAR: 1st and 2nd heart sounds normal. Much decreased edema. ABDOMEN: Soft, nontender. Liver and spleen not palpable. PSYCHIATRY: Answers questions but tired-appearing. INVESTIGATIONS: White count 11.8, hemoglobin 13.4, potassium 4.0, BUN 9, creatinine 1.02. ProBNP 930. Chest x-ray personally reviewed by me shows improving infiltrate. ASSESSMENT: 1. Bibasilar pneumonia, suspect gram-negative organism present on admission with response. 2. Acute congestive heart failure exacerbation from diastolic dysfunction. Ejection fraction 55% to 60%, improving. 3. Diabetes mellitus type 2 on oral hypoglycemics. 4. Chronic obstructive pulmonary diease in a current smoker. 5. Chronic nicotine dependence, patient is a cigarette smoker. 6. Hyperlipidemia. 7. Essential hypertension. 8. Primary osteoarthritis. 9. Acute delirium, likely underlying pneumonia with some improvement. 10.Suspect underlying mild cognitive impairment. Care was discussed with the patient's daughter. Congestive heart failure is greatly improved. BNP has also come down. We will switch the patient to oral Lasix in the morning. The patient's white count also has been coming down. Will watch for another 24 hours. MMODL / IJN: [id number] /
[2018-09-15 07:33] LABS: Glucose,Whole Blood 122 mg/dL (75-99)
[2018-09-15] MEDS: INSULIN ASPART 100 UNIT/ML 1 ML 10 ML VIAL SQ SCH ×2 (07:37→12:57)
[2018-09-15] MEDS: ASPIRIN 81 MG PO SCH (08:11)
[2018-09-15] MEDS: FAMOTIDINE 20 MG TAB PO SCH (08:11)
[2018-09-15] MEDS: POTASSIUM CHLORIDE ER 20 MEQ TAB.ER PO SCH (08:11)
[2018-09-15] MEDS: MULTIVITAMINS, THERA 1 EACH TAB PO SCH (08:11)
[2018-09-15] MEDS: metFORMIN 500 MG TAB PO SCH (08:11)
[2018-09-15] MEDS: Acetaminophen-Codeine 300-30mg TAB PO PRN (08:12)
[2018-09-15] MEDS: AZITHROMYCIN 500 MG TAB PO SCH (08:12)
[2018-09-15] MEDS: ATENOLOL 50 MG TAB PO SCH (08:12)
[2018-09-15] MEDS: guaiFENesin-DM 600/30MG 1 EACH TAB.ER.12H PO SCH (08:16)
--- NOTE | 2018-09-15 08:42 | CT ---
EXAMINATION TYPE: CT chest wo con DATE OF EXAM: 09/15/2018 COMPARISON: None HISTORY: Patient poor historian CT DLP: 72 mGycm, Automated exposure control for dose reduction was used. CONTRAST: None TECHNIQUE: Axial images were obtained at 1 mm thick sections at 10 mm intervals. This will limit po rtions of the examination which may not be visualized within the [id number]. Images were obtained in the supine view. FINDINGS: Portion of the thyroid visualized is normal. There is a consolidation in the posterior left lung base. Increased lung markings are present bilater ally within the dependent portions of the lung bases. Findings have a chronic type appearance pulmona ry fibrosis could be considered. Some milder nonspecific increased lung markings are within the mid l ingula and anterior right middle lobe. Mild peribronchial thickening is present. There is a 1.1 cm right paratracheal lymph node. Additional shotty lymphadenopathy is present. The a scending aorta diameter at the level of the main pulmonary artery is 3.3 cm. The main pulmonary leatha ry diameter at the bifurcation is 2.4 cm. Coronary artery calcification is present. Limited CT sections are obtained through the upper abdomen. Abdomen is essentially unremarkable. IMPRESSIONS: 1. Findings suggestive for some underlying pulmonary fibrosis with possible chronic bronchitis. 2. Enlarged right paratracheal lymph node measuring 1.1 cm. 3. Left lower lobe infiltrate may be present. Correlate for atelectasis or pneumonia.
[2018-09-15] MEDS: IPRATROPIUM-ALBUTEROL 3 ML NEB INHALATION SCH ×2 (08:48→12:29)
[2018-09-15 08:54] LABS: Calcium 9.9 mg/dL (8.4-10.2); Potassium 4.2 mmol/L (3.5-5.1)
[2018-09-15] MEDS ORDERED: FUROSEMIDE 40 MG TAB PO SCH (09:00)
[2018-09-15] MEDS ORDERED: METHOTREXATE SODIUM 2.5 MG TAB PO SCH (12:00)
[2018-09-15] MEDS: ALPRAZolam 0.25 MG TAB PO PRN (12:17)
[2018-09-15 12:37] LABS: Glucose,Whole Blood 95 mg/dL (75-99)
[2018-09-15 14:42] VITALS: BP 126/57; PULSE 78; RESP 20; TEMP 97.4
--- NOTE | 2018-09-15 14:52 | DS ---
DISCHARGE SUMMARY DATE OF ADMISSION: 09/11/2018 DATE OF DISCHARGE: 09/15/2018 FINAL DIAGNOSES: 1. Bilateral pneumonia; suspect gram-negative organism. Present on admission. 2. Acute congestive heart failure exacerbation from diastolic dysfunction. Ejection fraction 55% to 60%. 3. Bilateral pulmonary fibrosis, lower lobes. 4. Diabetes mellitus, type 2, on oral hypoglycemic. 5. Chronic obstructive pulmonary disease in a current smoker. 6. Chronic nicotine dependence. Patient is a cigarette smoker. 7. Hyperlipidemia. 8. Essential hypertension. 9. Primary osteoarthritis. 10.Acute delirium from underlying pneumonia with resolution. 11.Mild cognitive impairment suspected. HOSPITAL COURSE: This patient presented with cough, shortness of breath, edema, was treated for congestive heart failure. Edema greatly improved. No further edema by the time of discharge. BNP came down nicely. Patient also had pneumonia with sputum production which improved very well with antibiotics. There was a suspicion for underlying pulmonary fibrosis. High-resolution CT scan of the chest did confirm the same. I had a discussion with the patient, patient's and daughter today. His did reveal that the patient had follow up with Dr. Epperson in the past; not sure for what. I did tell him to follow up with Dr. Epperson for the same. Patient also to follow up with his labor relations director. He is rather stable right now. PHYSICAL EXAMINATION: On examination, temperature 98, pulse 90, respiration 18, blood pressure 113/63, pulse ox 93% on room air. LUNGS: Basal fine crackles. No edema. PSYCH: Patient answers questions appropriately. INVESTIGATIONS: BUN 18, creatinine 0.99. Two-D echo shows EF of 55% to 60%. High-resolution CT scan of the chest shows evidence of pulmonary fibrosis. DISCHARGE MEDICATIONS: 1. Aspirin 81 mg a day. 2. Fish oil 1 capsule p.o. b.i.d. 3. Zantac 150 mg b.i.d. 4. Humira 40 mg subcutaneously every 14 days. 5. Tenormin 50 mg p.o. daily. 6. Calcium 600 mg p.o. daily. 7. Vitamin D3 2000 units p.o. daily. 8. Folic acid 1 mg p.o. at bedtime. 9. Combivent 1 puff q.i.d. 10.Methotrexate 25 mg on Fridays. 11.Multivitamin 1 tablet p.o. daily. 12.MiraLAX 17 grams p.o. daily. 13.Potassium 20 mEq p.o. daily. 14.Senokot S one tablet p.o. b.i.d. p.r.n. 15.Mucinex DM 1 tablet p.o. q.12. 16.Glucophage XR 500 mg p.o. daily. 17.Tylenol #3 one tablet q.6 p.r.n. 18.Lipitor 40 mg at bedtime. 19.Lasix 40 mg p.o. daily. 20.Levaquin 500 mg p.o. daily for 3 days. 21.Melatonin 3 mg at bedtime p.r.n. for insomnia. 22.Nicotine 20 mg patch. 23.Ultram 50 mg q.6 p.r.n. FOLLOWUP: Follow up with Dr. Gavin in 3 days. Follow up with Dr. Eliza Magallanes in one week. Follow up with Dr. Epperson in one week. Follow up with Dr. Lawson as scheduled. DISPOSITION: [facility]. CODE STATUS: FULL CODE Discussion and discharge planning more than 35 minutes. MMODL / IJN: [id number] /
== END 2018-09-15 15:28 | DRG 177 ==
LOC: EC 08:42 → 4MS4W 13:34
PROVIDERS: ADMIT Hospitalist; ATTEND Hospitalist
DX: J15.6 Pneumonia due to other Gram-negative bacteria (principal); I50.33 Acute on chronic diastolic (congestive) heart failure; J44.0 Chronic obstructive pulmonary disease with (acute) lower respiratory infection; I11.0 Hypertensive heart disease with heart failure; E11.9 Type 2 diabetes mellitus without complications; J44.9 Chronic obstructive pulmonary disease, unspecified; E78.5 Hyperlipidemia, unspecified; F17.210 Nicotine dependence, cigarettes, uncomplicated; M06.9 Rheumatoid arthritis, unspecified; J84.10 Pulmonary fibrosis, unspecified; M19.91 Primary osteoarthritis, unspecified site; G31.84 Mild cognitive impairment of uncertain or unknown etiology; Z90.49 Acquired absence of other specified parts of digestive tract; Z79.84 Long term (current) use of oral hypoglycemic drugs; Z79.82 Long term (current) use of aspirin; Z79.899 Other long term (current) drug therapy; Z88.0 Allergy status to penicillin
CPT/HCPCS: 36415; 70450; 71046; 71250; 80048; 80053; 80306; 81003; 82550; 82553; 83036; 83605; 83880; 84484; 85025; 85610; 85730; 87040; 87070; 87205; 93005; 93306; 94640; 99285

== ENCOUNTER 2019-10-25 10:34 | Inpatient (IN) | payer MEDICARE, BC ==
[2019-10-25] MEDS ORDERED: NALOXONE 0.4 MG/ML 1 ML VIAL IV PRN (14:06)
[2019-10-25] MEDS ORDERED: ACETAMINOPHEN TAB 500 MG TAB PO PRN (14:08)
[2019-10-25] MEDS ORDERED: HYDROcodone/APAP 5-325MG 1 EACH TAB PO PRN (14:18)
[2019-10-25] MEDS ORDERED: HYDROmorphone 0.5 MG/0.5 ML SYRINGE IVP PRN (14:18)
--- NOTE | 2019-10-25 14:29 | XR ---
EXAMINATION TYPE: XR chest 1V portable DATE OF EXAM: 10/25/2019 COMPARISON: 09/14/2018 HISTORY: Shortness of breath TECHNIQUE: Single frontal view of the chest is obtained. FINDINGS: Heart is prominent there is atherosclerotic change of the aorta. Diffuse osteopenia with n o pneumothorax. Elevation the hemidiaphragm with by basilar subsegmental consolidation. There is righ t perihilar vague patchy infiltrate. Underlying COPD suspected. IMPRESSION: 1. Patchy lower lobe and right perihilar infiltrate. Differential diagnosis includes early venous con gestion versus early pneumonia. Follow-up to resolution particularly with regard to the right perihil ar density is recommended to exclude other etiologies.
[2019-10-25] MEDS ORDERED: LOPERAMIDE 2 MG CAP PO PRN (14:53)
[2019-10-25] MEDS ORDERED: IPRATROPIUM-ALBUTEROL 3 ML NEB INHALATION PRN (14:56)
[2019-10-25 15:15] LABS: Basophils % (A) 0 %; Eosinophils # (A) 0.1 k/uL (0-0.7); Eosinophils % (A) 0 %; HCT 41.8 % (39.0-53.0); HGB 13.4 gm/dL (13.0-17.5); Lymphocytes # (A) 1.5 k/uL (1.0-4.8); Lymphocytes % (A) 10 %; MCH 29.1 pg (25.0-35.0); MCV 90.9 fL (80.0-100.0); Mean Platelet Volume 7.1; Monocytes # (A) 1.1 k/uL (0-1.0); Monocytes % (A) 7 %; Neutrophils # (A) 12.4 k/uL (1.3-7.7); Neutrophils % (A) 81 %; Platelet Count 420 k/uL (150-450); RBC 4.59 m/uL (4.30-5.90); RDW 14.6 % (11.5-15.5); WBC 15.3 k/uL (3.8-10.6)
--- NOTE | 2019-10-25 15:22 | HP ---
HISTORY AND PHYSICAL CHIEF COMPLAINTS: Vomiting, coffee-ground vomiting. HISTORY OF PRESENT ILLNESS: This is a 78-year-old gentleman with a past history of CHF, COPD, dementia, diabetes, GERD, hypertension, hyperlipidemia, history of rheumatoid arthritis, bilateral pulmonary fibrosis, being followed by Dr. Sparks in the outpatient setting, is living in the Memory Care unit of [facility] at this time. In the [facility], the patient had vomiting on Tuesday. Subsequently, patient felt better on Tuesday. Subsequently, patient had recurrent vomiting and coffee-ground vomiting and patient taken to [facility] ER and admitted for further evaluation and treatment. The patient was evaluated. In the [facility], a chest x-ray showed some atelectasis of the left lower base and CT scan of the abdomen showed features of small- bowel obstruction and as well as some opacities in both lung bases and mild compression of the L2 and bilateral renal cyst also noted and the case was discussed with Dr. Santy Garcia and the patient directly transferred to [facility] for direct transfer for further evaluation and treatment. Previously, patient had abdominal surgeries, abdominal aortic repair with Dr. Pal and as well as cholecystectomy by Dr. Lugo about 3 years ago. There is no history of fever or rigors. There is no history of fever, rigors. No history of headache, loss of consciousness, seizures. Patient is unable to give a detailed history, mostly sketchy history is obtained. Most of the history is taken with discussion with the staff and discussion with the family at the bedside and review of the chart. PAST MEDICAL HISTORY: History of COPD, CHF, dementia, diabetes, GERD, hypertension, hyperlipidemia, history of DJD, history of pneumonia, history of bilateral pulmonary fibrosis, cholecystectomy. MEDICATIONS: Prior to admission are: 1. Ultram 50 mg q.8. p.r.n. 2. Metformin 500 mg p.o. daily. 3. Mucinex 600 mg 1 p.o. b.i.d. 4. Senokot-S 1 tablet p.o. b.i.d. p.r.n. 5. Zantac 150 mg p.o. b.i.d. 6. Klor-Con 20 mEq p.o. daily. 7. MiraLAX 17 g p.o. daily p.r.n. 8. [place]-3 one p.o. b.i.d. 9. Habitrol 21 daily. 10.Multivitamin 1 p.o. daily. 11.Methotrexate 25 mg Tuesday. 12.Melatonin 3 mg q.h.s. p.r.n. 13.Levaquin 500 mg daily p.r.n. 14.Combivent 1 puff q.i.d. 15.Lasix 40 mg p.o. daily. 16.Folic acid 1 mg q.h.s. 17.Vitamin D3 two thousand daily. 18.Calcium 600 mg p.o. daily. 19.Lipitor 40 mg q.h.s. 20.Tenormin 50 mg p.o. daily. 21.Aspirin 81 mg p.o. daily. 22.Humira 40 mg subcu 14 days. 23.Tylenol number #3 one tablet q.6 p.r.n. ALLERGIES: PENICILLIN. FAMILY HISTORY: History of alcoholism and esophageal varies in mother. SOCIAL HISTORY: No history of current alcohol, smoking, previous smoking. REVIEW OF SYSTEMS: ENT: Diminished vision. CARDIOVASCULAR: No angina or palpitations. RESPIRATORY: As mentioned earlier. GI: As mentioned earlier. : No dysuria. NERVOUS SYSTEM: As mentioned earlier. ALLERGIES: No asthma or hayfever. MUSCULOSKELETAL: As mentioned earlier. HEMATOLOGY/ONCOLOGY: No history of anemia. ENDOCRINE: As mentioned earlier. CONSTITUTIONAL: As mentioned earlier. DERMATOLOGY: Negative. RHEUMATOLOGY: Negative. PSYCHIATRY: As mentioned earlier. PHYSICAL EXAMINATION: Alert and oriented x2. Pulse is 108, blood pressure 120/70, respiration 18, temp 98.1, pulse ox 97% on 2 L. HEENT: Conjunctivae normal. Oral mucosa dry. NECK: No jugular venous distension, no lymph enlargement. CARDIOVASCULAR SYSTEM: S1, S2, muffled, no S3. RESPIRATIONS: Breath sounds diminished at the bases, a few scattered rhonchi, no crackles. ABDOMEN: Soft. History of healed scar over the abdominal bladder cancer repair, otherwise mild diffuse distention. No guarding. No rigidity. No tenderness. Bowel sounds diminished. No ascites. No mass palpable. LEGS: No edema, no swelling. NERVOUS SYSTEM: Higher function as mentioned. Moves all 4 limbs. No focal motor or sensory deficit. LYMPHATICS: No lymph node enlargement in the neck or axillae. SKIN: No ulcer or rash deformity JOINTS: No active deforming arthropathy. LABS: Hemoglobin 14.2. Other labs are reviewed. ASSESSMENT: 1. Vomiting and as well as abdominal distention, possibly small-bowel obstruction. 2. Rule out upper gastrointestinal bleeding. 3. History of congestive heart failure with chronic diastolic dysfunction, ejection fraction 50%-55%. 4. History of chronic obstructive pulmonary disease. 5. Dementia. 6. Diabetes mellitus type 2. 7. Hypertension. 8. History of history of pneumonia. 9. History of rheumatoid arthritis with deformities. 10.History of bilateral pulmonary fibrosis. 11.History of chronic bilateral knee pain, degenerative joint disease. 12.History of abdominal aortic aneurysm repair. 13.History of cholecystectomy. 14.History of hernia repair. 15.History of degenerative joint disease. 16.Remote history of nicotine dependence. 17.History of gait dysfunction. 18.NO CODE, NO CPR, NO VENT. RECOMMENDATION: In this 78-year-old gentleman who presented with multiple complex medical issues, will monitor the patient closely, continue with the current management and symptomatic treatment. Home medications have not confirmed and once is confirmed, I will order the home medications. Otherwise, at this time. Keep n.p.o. except medications. H and H q.6. Transfuse periodically and also get a surgical evaluation. The patient has features of small-bowel obstruction of undetermined etiology possibly secondary to adhesions. I will continue to monitor. Continue the IV fluids cautiously. Chest x-ray will be ordered to rule out for the possibility of any acute CHF. We will follow the patient closely and a copy of this will be forwarded to Dr. Santy Garcia who is the primary physician this. MMYONATANL / LETHAN: [id number] /
[2019-10-25 15:33] LABS: Albumin 3.5 g/dL (3.5-5.0); Calcium 9.4 mg/dL (8.4-10.2); Magnesium 2.2 mg/dL (1.6-2.3); Phosphorus 3.4 mg/dL (2.5-4.5); Potassium 3.7 mmol/L (3.5-5.1); Total Bilirubin 1.1 mg/dL (0.2-1.3); Total Protein 7.1 g/dL (6.3-8.2)
[2019-10-25 15:51] LABS: Appearance,Urine Clear (Clear); Bilirubin,Urine Negative (Negative); Blood,Urine Negative (Negative); Color,Urine Yellow; Glucose,Urine (UA) Negative (Negative); Hyaline Casts,Urine 1 /lpf (0-2); Ketones,Urine 2+ (Negative); Leukocyte Esterase,Urine Moderate (Negative); Mucus,Urine Rare /hpf; Nitrite,Urine Negative (Negative); PH, Urine 6.5 (5.0-8.0); Protein,Urine 1+ (Negative); RBC,Urine 2 /hpf (0-5); Specific Gravity,Urine 1.023 (1.001-1.035); Squamous Epithelial Cell,Urine <1 /hpf (0-4); WBC,Urine 7 /hpf (0-5)
[2019-10-25] MEDS: PANTOPRAZOLE 40 MG/10 ML VIAL IVP SCH ×2 (16:42→20:42)
[2019-10-25] MEDS: SODIUM CHLORIDE 0.9% 1,000 ML IV SCH (16:42)
[2019-10-25] MEDS: HEPARIN SODIUM,PORCINE 5,000 UNIT/ML 1 ML VIAL SQ SCH ×2 (16:43→20:41)
[2019-10-25 17:17] LABS: Glucose,Whole Blood 147 mg/dL (75-99)
[2019-10-25] MEDS: INSULIN ASPART (NovoLOG) 100 UNIT/ML VIAL SQ SCH ×2 (17:18→20:43)
--- NOTE | 2019-10-25 17:57 | P.GSCN ---
History of Present Illness Consult date: 10/25/19 Reason for Consult: vomiting, abdominal pain History of present illness: The patient is a 78-year-old man who began feeling ill on Tuesday. He had some pain, nausea, vomiting. Tuesday he was feeling better. This morning he was worse again and threw up some blood. He went to the emergency department. He was transferred here for rule out bowel obstruction. The patient has not had any prior symptoms. Complaining of some generalized abdominal pain. He doesn't remember when his last bowel movement was. No prior problems with heartburn or indigestion. Review of Systems - Constitutional Reports as per HPI Past Medical History Past Medical History: Heart Failure, COPD, Dementia, Diabetes Mellitus, GERD/Reflux, Hyperlipidemia, Hypertension, Osteoarthritis (OA), Pneumonia, Respiratory Disorder, Rheumatoid Arthritis (RA), Vascular Disorder Additional Past Medical History / Comment(s): Bilateral pulmonary fibrosis, mild cognitive impairment, NIDDM type II, chronic bilateral leg/knee pain and occasional bilateral hand pain d/t RA, AAA with repair. History of Any Multi-Drug Resistant Organisms: None Reported Past Surgical History: Cholecystectomy, Hernia Repair, Orthopedic Surgery Additional Past Surgical History / Comment(s): 08/17/16 acromioplasty excision distal clavicle rotator cuff repair R shoulder, repair abdominal aortic aneu rysm-had incisiional hernia after aa sx had sx to repair, ORIF left femur. Past Anesthesia/Blood Transfusion Reactions: No Reported Reaction Smoking Status: Former smoker - Past Family History Mother Family Medical History: No Reported History Additional Family Medical History / Comment(s): Mother was an alcoholic and of esophageal varicies. Father Additional Family Medical History / Comment(s): Father had a significant heart murmur. Medications and Allergies Home Medications Medication Instructions Recorded Confirmed Type Aspirin 81 mg PO DAILY@0900 08/12/16 10/25/19 History Multivitamins, Thera [Multivitamin 1 tab PO DAILY@0900 09/05/18 10/25/19 History (formulary)] Polyethylene Glycol 3350 [Miralax] 17 gm PO DAILY PRN 09/05/18 10/25/19 History Potassium Chloride [Klor-Con 20] 20 meq PO DAILY@0900 09/05/18 10/25/19 History Sennosides-Docusate Sodium 2 tab PO DAILY PRN 09/05/18 10/25/19 History [Senokot-S] metFORMIN HCL ER [Glucophage Xr] 500 mg PO DAILY@0900 09/05/18 10/25/19 History ALPRAZolam [Xanax] 0.25 mg PO TID PRN 10/25/19 10/25/19 History Atorvastatin [Lipitor] 40 mg PO DAILY@209910/25/19 10/25/19 History Bisacodyl 10 mg RECTAL DAILY PRN 10/25/19 10/25/19 History Escitalopram [Lexapro] 5 mg PO DAILY@0910/25/19 10/25/19 History Famotidine [Pepcid] 40 mg PO DAILY@00 10/25/19 10/25/19 History Furosemide [Lasix] 20 mg PO DAILY@00 10/25/19 10/25/19 History HYDROcodone/APAP 5-325MG [[place] 1 tab PO DAILY PRN 10/25/19 10/25/19 History 5-325] HYDROcodone/APAP 5-325MG [[place] 1 tab PO TID PRN 10/25/19 10/25/19 History 5-325] House Supplement 120 ml PO TID 10/25/19 10/25/19 History Loperamide [Imodium] 4 mg PO Q12H PRN 10/25/19 10/25/19 History Magnesium Hydroxide [Milk of 1,200 mg PO DAILY PRN 10/25/19 10/25/19 History Magnesia] Magnesium Oxide 400 mg PO DAILY@209910/25/19 10/25/19 History Melatonin 6 mg PO DAILY@2099 PRN 10/25/19 10/25/19 History Naproxen [Naprosyn] 500 mg PO DAILY@0900,209910/25/19 10/25/19 History Allergies Allergy/AdvReac Type Severity Reaction Status Date / Time Penicillins Allergy Swelling Verified 09/11/18 09:00 Surgical - Exam Osteopathic Statement: *. No significant issues noted on an osteopathic structural exam other than those noted in the History and Physical/Consult. Vital Signs Temp Pulse Resp BP Pulse Ox 98.1 F 108 H 18 122/76 97 10/25/19 12:56 10/25/19 12:56 10/25/19 12:56 10/25/19 12:56 10/25/19 12:56 - General Cooperative, appears ill, age-appropriate - Eyes normal ocular movement - Neck trachea midline - Respiratory normal respiratory effort, clear to auscultation - Cardiovascular Rhythm: regular - Abdomen Abdomen: tender (Mild nonspecific tenderness), bowel sounds, surgical scars (Right subcostal and midline), no masses, no guarding, no rigid, no rebound, distended (Mildly distended) Results - Labs 10/25/19 14:38 10/25/19 14:38 Abnormal Lab Results - Last 24 Hours (Table) 10/25/19 10/25/19 10/25/19 Range/Units 14:38 14:38 15:37 WBC 15.3 H (3.8-10.6) k/uL Neutrophils # 12.4 H (1.3-7.7) k/uL Monocytes # 1.1 H (0-1.0) k/uL Chloride 95 L (98-107) mmol/L Carbon Dioxide 34 H (22-30) mmol/L BUN 53 H (9-20) mg/dL Glucose 150 H (74-99) mg/dL POC Glucose (mg/dL) (75-99) mg/dL Urine Protein 1+ H (Negative) Urine Ketones 2+ H (Negative) Ur Leukocyte Esterase Moderate H (Negative) Urine WBC 7 H (0-5) /hpf Urine Mucus Rare H (None) /hpf 10/25/19 Range/Units 17:16 WBC (3.8-10.6) k/uL Neutrophils # (1.3-7.7) k/uL Monocytes # (0-1.0) k/uL Chloride (98-107) mmol/L Carbon Dioxide (22-30) mmol/L BUN (9-20) mg/dL Glucose (74-99) mg/dL POC Glucose (mg/dL) 147 H (75-99) mg/dL Urine Protein (Negative) Urine Ketones (Negative) Ur Leukocyte Esterase (Negative) Urine WBC (0-5) /hpf Urine Mucus (None) /hpf Diabetes panel 10/25/19 Range/Units 14:38 Sodium 139 (137-145) mmol/L Potassium 3.7 (3.5-5.1) mmol/L Chloride 95 L (98-107) mmol/L Carbon Dioxide 34 H (22-30) mmol/L BUN 53 H (9-20) mg/dL Creatinine 1.13 (0.66-1.25) mg/dL Glucose 150 H (74-99) mg/dL Calcium 9.4 (8.4-10.2) mg/dL AST 18 (17-59) U/L ALT 16 (4-49) U/L Alkaline Phosphatase 52 (38-126) U/L Total Protein 7.1 (6.3-8.2) g/dL Albumin 3.5 (3.5-5.0) g/dL Calcium panel 10/25/19 Range/Units 14:38 Calcium 9.4 (8.4-10.2) mg/dL Phosphorus 3.4 (2.5-4.5) mg/dL Albumin 3.5 (3.5-5.0) g/dL Pituitary panel 10/25/19 Range/Units 14:38 Sodium 139 (137-145) mmol/L Potassium 3.7 (3.5-5.1) mmol/L Chloride 95 L (98-107) mmol/L Carbon Dioxide 34 H (22-30) mmol/L BUN 53 H (9-20) mg/dL Creatinine 1.13 (0.66-1.25) mg/dL Glucose 150 H (74-99) mg/dL Calcium 9.4 (8.4-10.2) mg/dL Adrenal panel 10/25/19 Range/Units 14:38 Sodium 139 (137-145) mmol/L Potassium 3.7 (3.5-5.1) mmol/L Chloride 95 L (98-107) mmol/L Carbon Dioxide 34 H (22-30) mmol/L BUN 53 H (9-20) mg/dL Creatinine 1.13 (0.66-1.25) mg/dL Glucose 150 H (74-99) mg/dL Calcium 9.4 (8.4-10.2) mg/dL Total Bilirubin 1.1 (0.2-1.3) mg/dL AST 18 (17-59) U/L ALT 16 (4-49) U/L Alkaline Phosphatase 52 (38-126) U/L Total Protein 7.1 (6.3-8.2) g/dL Albumin 3.5 (3.5-5.0) g/dL - Imaging CT scan - abdomen: report reviewed, image reviewed (I personally reviewed the computed tomography scan of the abdomen and pelvis. There dilated loops of small bowel and stomach proximally. No definitive transition point is seen. Air and stool in the colon) Assessment and Plan (1) Small bowel obstruction Current Visit: Yes Status: Acute Code(s): K56.609 - UNSP INTESTNL OBST, UNSP TO PARTIAL VERSUS COMPLETE OBST SNOMED Code(s): 681135257 (2) Abdominal pain Current Visit: Yes Status: Acute Code(s): R10.9 - UNSPECIFIED ABDOMINAL PAIN SNOMED Code(s): 65870910 (3) Hematemesis Current Visit: Yes Status: Acute Code(s): K92.0 - HEMATEMESIS SNOMED Code(s): 3598631 Plan: At this point I would treat patient conservatively. Make him nothing by mouth. Hydrate, serial exams and x-rays. Send a urine culture. DVT and ulcer prophylaxis. The hematemesis may be due to a Josefina-Nina type tear. Further recommendations to follow. The patient hasn't had any emesis for the last 10 hours. If he has recurrent emesis we'll place an NG tube.
[2019-10-25 20:10] LABS: Glucose,Whole Blood 141 mg/dL (75-99)
[2019-10-25] MEDS: IPRATROPIUM-ALBUTEROL 3 ML NEB INHALATION SCH (21:01)
[2019-10-26] MEDS: SODIUM CHLORIDE 0.9% 1,000 ML IV SCH ×2 (05:54→19:45)
[2019-10-26 07:01] LABS: Glucose,Whole Blood 119 mg/dL (75-99)
[2019-10-26] MEDS: INSULIN ASPART (NovoLOG) 100 UNIT/ML VIAL SQ SCH ×4 (07:13→20:50)
[2019-10-26] MEDS: FUROSEMIDE 20 MG TAB PO SCH (07:57)
[2019-10-26] MEDS: ESCITALOPRAM 5 MG TAB PO SCH (07:57)
[2019-10-26] MEDS: PANTOPRAZOLE 40 MG/10 ML VIAL IVP SCH ×2 (07:58→20:05)
[2019-10-26] MEDS: HEPARIN SODIUM,PORCINE 5,000 UNIT/ML 1 ML VIAL SQ SCH ×2 (08:15→20:05)
[2019-10-26] MEDS: IPRATROPIUM-ALBUTEROL 3 ML NEB INHALATION SCH ×3 (08:46→20:16)
--- NOTE | 2019-10-26 08:51 | XR ---
EXAMINATION TYPE: XR abdomen 2V DATE OF EXAM: 10/26/2019 8:27 AM CLINICAL HISTORY: Abdominal pain. Small bowel obstruction. TECHNIQUE: Upright and supine images of the abdomen were obtained. COMPARISON: None. FINDINGS: There are dilated loops of small bowel scattered throughout the abdomen predominating in th e left hemiabdomen measuring up to 4.4 cm. Minimal amount of free air is seen within the colon. Nondi lated colon. Diffuse osseous demineralization and degenerative changes of the spine as well as hips w ith surgical fixation of the left hip. Surgical clips are also seen in the mid abdomen. Lung bases ar e overall well aerated. Levoscoliosis of the spine and probable compression deformity at L2. No pneum operitoneum seen. IMPRESSION: Dilated loops of small bowel predominating in the left hemiabdomen measuring up to 4.4 cm . Small bowel obstruction is suspected versus less likely severe small bowel ileus.
[2019-10-26 09:22] LABS: Basophils # (A) 0.1 k/uL (0-0.2); Basophils % (A) 0 %; Calcium 9.1 mg/dL (8.4-10.2); Eosinophils # (A) 0.2 k/uL (0-0.7); Eosinophils % (A) 1 %; HCT 38.4 % (39.0-53.0); HGB 12.4 gm/dL (13.0-17.5); Lymphocytes # (A) 1.6 k/uL (1.0-4.8); Lymphocytes % (A) 11 %; MCH 29.4 pg (25.0-35.0); MCHC 32.3 g/dL (31.0-37.0); MCV 91.3 fL (80.0-100.0); Mean Platelet Volume 7.4; Monocytes # (A) 0.9 k/uL (0-1.0); Monocytes % (A) 6 %; Neutrophils # (A) 11.8 k/uL (1.3-7.7); Neutrophils % (A) 79 %; Platelet Count 421 k/uL (150-450); Potassium 3.5 mmol/L (3.5-5.1); RBC 4.21 m/uL (4.30-5.90); RDW 14.7 % (11.5-15.5); WBC 14.9 k/uL (3.8-10.6)
--- NOTE | 2019-10-26 09:47 | P.PN ---
Subjective Progress Note Date: 10/26/19 Principal diagnosis: Abdominal pain, nausea and vomiting The patient is seen on rounds. Had no further emesis. He still having pain and does not like he is significantly improved. Denies flatus. Objective - Vital Signs Vital signs: Vital Signs Temp 97.6 F 10/26/19 04:52 Pulse 104 H 10/26/19 08:54 Resp 16 10/26/19 04:52 BP 136/73 10/26/19 04:52 Pulse Ox 94 L 10/26/19 04:52 Intake & Output 10/25/19 10/26/19 10/26/19 18:59 06:59 18:59 Intake Total 825 Output Total 120 Balance 705 Weight 75.5 kg Intake: Intake, IV Titration 825 Amount Sodium Chloride 0.9% 1, 825 000 ml @ 75 mls/hr IV . [id number] [facility] Rx#:[id number] Output: Urine 120 Other: Voiding Method Diaper Urinal Urinal Diaper Diaper - Constitutional General appearance: Present: cooperative, no acute distress - Respiratory Respiratory: right: diminished (at the bases), bilateral: CTA - Gastrointestinal Gastrointestinal Comment(s): no rebound or guarding General gastrointestinal: Present: decreased bowel sounds, distended (more tympanitic than yesterday) - Labs CBC & Chem 7: 10/26/19 08:37 10/26/19 08:37 Labs: Abnormal Lab Results - Last 24 Hours (Table) 10/25/19 10/25/19 10/25/19 Range/Units 14:38 14:38 15:37 WBC 15.3 H (3.8-10.6) k/uL RBC (4.30-5.90) m/uL Hgb (13.0-17.5) gm/dL Hct (39.0-53.0) % Neutrophils # 12.4 H (1.3-7.7) k/uL Monocytes # 1.1 H (0-1.0) k/uL Chloride 95 L (98-107) mmol/L Carbon Dioxide 34 H (22-30) mmol/L BUN 53 H (9-20) mg/dL Glucose 150 H (74-99) mg/dL POC Glucose (mg/dL) (75-99) mg/dL Urine Protein 1+ H (Negative) Urine Ketones 2+ H (Negative) Ur Leukocyte Esterase Moderate H (Negative) Urine WBC 7 H (0-5) /hpf Urine Mucus Rare H (None) /hpf 10/25/19 10/25/19 10/26/19 Range/Units 17:16 20:09 07:00 WBC (3.8-10.6) k/uL RBC (4.30-5.90) m/uL Hgb (13.0-17.5) gm/dL Hct (39.0-53.0) % Neutrophils # (1.3-7.7) k/uL Monocytes # (0-1.0) k/uL Chloride (98-107) mmol/L Carbon Dioxide (22-30) mmol/L BUN (9-20) mg/dL Glucose (74-99) mg/dL POC Glucose (mg/dL) 147 H 141 H 119 H (75-99) mg/dL Urine Protein (Negative) Urine Ketones (Negative) Ur Leukocyte Esterase (Negative) Urine WBC (0-5) /hpf Urine Mucus (None) /hpf 10/26/19 10/26/19 Range/Units 08:37 08:37 WBC 14.9 H (3.8-10.6) k/uL RBC 4.21 L (4.30-5.90) m/uL Hgb 12.4 L (13.0-17.5) gm/dL Hct 38.4 L (39.0-53.0) % Neutrophils # 11.8 H (1.3-7.7) k/uL Monocytes # (0-1.0) k/uL Chloride (98-107) mmol/L Carbon Dioxide (22-30) mmol/L BUN 45 H (9-20) mg/dL Glucose 113 H (74-99) mg/dL POC Glucose (mg/dL) (75-99) mg/dL Urine Protein (Negative) Urine Ketones (Negative) Ur Leukocyte Esterase (Negative) Urine WBC (0-5) /hpf Urine Mucus (None) /hpf Assessment and Plan (1) Small bowel obstruction Current Visit: Yes Status: Acute Code(s): K56.609 - UNSP INTESTNL OBST, UNSP TO PARTIAL VERSUS COMPLETE OBST SNOMED Code(s): 490865606 (2) Abdominal pain Current Visit: Yes Status: Acute Code(s): R10.9 - UNSPECIFIED ABDOMINAL PAIN SNOMED Code(s): 17295658 (3) Hematemesis Current Visit: Yes Status: Acute Code(s): K92.0 - HEMATEMESIS SNOMED Code(s): 1765754 Plan: The patient hasn't clinically improved. Therefore I recommend exploratory laparotomy. The procedure, risks and complications were discussed. Will proceed later today whe OR is available
[2019-10-26 11:13] LABS: Glucose,Whole Blood 131 mg/dL (75-99)
[2019-10-26] MEDS ORDERED: LACTATED RINGERS 1,000 ML IV ONE (16:43)
[2019-10-26 16:58] LABS: Glucose,Whole Blood 102 mg/dL (75-99)
[2019-10-26] MEDS ORDERED: PROPOFOL 10 MG/ML 20 ML VIAL IV ONE (17:05)
[2019-10-26] MEDS ORDERED: NEOSTIGMINE 1 MG/ML 10 ML VIAL ONE (17:05)
[2019-10-26] MEDS ORDERED: PHENYLEPHRINE-0.9% NACL SYG 1 MG/10 ML SYRINGE ONE (17:05)
[2019-10-26] MEDS ORDERED: SUCCINYLCHOLINE CHLORIDE 100 MG/5 ML SYR IV ONE (17:05)
[2019-10-26] MEDS ORDERED: ROCURONIUM BROMIDE 10 MG/ML 5 ML VIAL IV ONE (17:05)
[2019-10-26] MEDS ORDERED: fentaNYL (PF) 50 MCG/ML 2 ML AMP ONE (17:05)
[2019-10-26] MEDS ORDERED: GLYCOPYRROLATE 0.2 MG/ML 2 ML VIAL ONE (17:05)
[2019-10-26] MEDS ORDERED: CLINDAMYCIN 150 MG/ML 4 ML VIAL ONE (17:05)
[2019-10-26] MEDS ORDERED: MIDAZOLAM 2 MG/2 ML VIAL ONE (17:05)
--- NOTE | 2019-10-26 17:06 | P.PN ---
Progress Note - Text Progress Note Date: 10/26/19 Patients family at bedside. Questions answered. No code status will be held for OR
[2019-10-26] MEDS ORDERED: LIDOCAINE 2% GEL 30 ML TUBE URETHRAL ONE (17:08)
--- NOTE | 2019-10-26 17:15 | PN ---
PROGRESS NOTE DATE OF SERVICE: 10/26/2019 HISTORY OF PRESENT ILLNESS: This 78-year-old gentleman who presented with multiple medical problems, including vomiting and features of small-bowel obstruction, is being closely monitored. Abdominal and chest x-ray showed persistence of dilated loops. NG tube inserted with coffee- ground material coming out. Dr. Lugo saw the patient and recommended exploratory laparotomy. No chest pain. No palpitations. Past medical history reviewed. Review of systems could not be taken; the patient is rather drowsy. CURRENT MEDICATIONS: Reviewed. They include: 1. Tylenol p.r.n. 2. [place] 5 mg q.6 p.r.n. 3. DuoNeb q.i.d. and p.r.n. 4. Xanax 0.25 t.i.d. 5. Rocephin 1 gram daily. 6. Lexapro 5 mg p.o. daily. 7. Lasix 20 mg daily. 8. Heparin 5000 units subcutaneously b.i.d. 9. Dilaudid. 10.NovoLog. 11.Imodium. 12.Narcan. 13.Protonix. PHYSICAL EXAMINATION: Patient is drowsy. Pulse is 92, blood pressure 119/70, respiration 18, temperature 97.4, pulse ox 93% on room air. HEENT: Conjunctivae normal. Oral mucosa moist. NECK: No jugular venous distention. No carotid bruit. No lymph node enlargement. CARDIOVASCULAR SYSTEM: S1, S2 muffled. No S3. No S4. RESPIRATORY SYSTEM: Breath sounds diminished at the bases. Scattered rhonchi and crackles. ABDOMEN: Soft. Mild diffuse distention. also visible. Bowel sounds diminished. No ascites. No mass palpable. LEGS: No edema. No swelling. NERVOUS SYSTEM: Higher functions as mentioned earlier. Diffusely weak. LABS: WBC 14.9, hemoglobin 12.4, and sodium 142, potassium 4.5. BUN is 45 and glucose 131. ASSESSMENT: 1. Vomiting as well as abdominal distention, possibly small-bowel obstruction. 2. Possible upper gastrointestinal bleeding. 3. History of congestive heart failure with chronic diastolic dysfunction, ejection fraction 50% to 55%. 4. History of chronic obstructive pulmonary disease. 5. Dementia. 6. Diabetes mellitus, type 2. 7. Hypertension. 8. History of pneumonia. 9. History of rheumatoid arthritis with deformities. 10.History of bilateral pulmonary fibrosis. 11.History of chronic bilateral knee pain, degenerative joint disease. 12.History of abdominal aortic aneurysm repair. 13.History of cholecystectomy. 14.History of hernia repair. 15.History of degenerative joint disease. 16.Remote history of nicotine dependence. 17.Gait dysfunction. RECOMMENDATIONS AND DISCUSSION: I recommend to continue current medications, continue with the monitoring, symptomatic treatment. Otherwise at this time continue with NG tube, proton pump inhibitors. Empiric antibiotics are given. Dr. Lugo is following the patient closely for possible exploratory laparotomy and the rest of the case. Prognosis extremely guarded because of multiple complex medical issues. Further recommendations to follow. MMODL / IJN: [id number] / MTDD
[2019-10-26] MEDS ORDERED: SODIUM CHLORIDE 0.9% 50 ML with CLINDAMYCIN 600 MG IV ONE ×2 (17:30)
[2019-10-26] MEDS ORDERED: HYDROmorphone 0.5 MG/0.5 ML SYRINGE IVP PRN (17:51)
--- NOTE | 2019-10-26 17:51 | P.OP ---
Date of Procedure: 10/26/19 Preoperative Diagnosis: Small bowel obstruction Postoperative Diagnosis: Small bowel obstruction due to adhesions Procedure(s) Performed: Exploratory laparotomy with release of small bowel obstruction Anesthesia: HUBER Surgeon: Key Lugo Estimated Blood Loss (ml): 50 Pathology: none sent Condition: stable Disposition: PACU Indications for Procedure: The patient presented with abdominal pain, nausea, vomiting. He was hydrated monitor overnight and was not improving. X-ray was suggestive of bowel obstruction Description of Procedure: The patient's taken the operative suite where he is prepped and draped in the usual sterile manner under general endotracheal anesthetic. The abdomen is entered through a midline incision. There is evidence of hernia mesh inferior to the umbilicus and then in the superior part of the old scar. Meshes were lef t intact. Hand was placed into the abdominal cavity and a band of scar tissue was identified. This was divided with cautery. Small bowel was unable to be brought up through the incision. It was run and there was noted to be 2-3 other areas of potential obstruction the future which were taken down. The bowel was run proximally and distally. Normal bowel where the band had tethered also appeared normal. The small bowel was then returned into the abdominal cavity. The fascia was closed with 1 PDS. The skin was closed with alex. Elevated the procedure without difficulty was taken recovery room in satisfactory condition. According to or personnel, WERE correct.
[2019-10-26] MEDS ORDERED: HYDROmorphone 0.5 MG/0.5 ML SYRINGE IVP ONE (18:05)
[2019-10-26 18:12] LABS: Glucose,Whole Blood 122 mg/dL (75-99)
[2019-10-26] MEDS ORDERED: METOPROLOL TARTRATE 5 MG/5 ML VIAL IVP ONE (18:25)
[2019-10-26] MEDS ORDERED: MORPHINE SULFATE 4MG/4ML SYRG IVP ONE (18:28)
[2019-10-26] MEDS ORDERED: SODIUM CHLORIDE 0.9% 1,000 ML IV ONE (18:51)
[2019-10-26] MEDS: D5-0.45% NACL WITH KCL 20MEQ/L 1,000 ML IV SCH (19:45)
[2019-10-26 20:28] LABS: Glucose,Whole Blood 138 mg/dL (75-99)
[2019-10-26] MEDS: HYDROmorphone 0.5 MG/0.5 ML SYRINGE IVP PRN (20:50)
[2019-10-27 07:25] LABS: Glucose,Whole Blood 173 mg/dL (75-99)
[2019-10-27 07:38] LABS: Basophils # (A) 0.1 k/uL (0-0.2); Basophils % (A) 0 %; Eosinophils # (A) 0.5 k/uL (0-0.7); Eosinophils % (A) 4 %; HCT 36.7 % (39.0-53.0); HGB 11.8 gm/dL (13.0-17.5); Lymphocytes # (A) 1.5 k/uL (1.0-4.8); Lymphocytes % (A) 12 %; MCH 29.9 pg (25.0-35.0); MCHC 32.2 g/dL (31.0-37.0); MCV 92.8 fL (80.0-100.0); Mean Platelet Volume 7.3; Monocytes # (A) 0.6 k/uL (0-1.0); Monocytes % (A) 5 %; Neutrophils # (A) 9.8 k/uL (1.3-7.7); Neutrophils % (A) 78 %; Platelet Count 380 k/uL (150-450); RBC 3.96 m/uL (4.30-5.90); RDW 14.6 % (11.5-15.5); WBC 12.5 k/uL (3.8-10.6)
[2019-10-27 07:49] LABS: Calcium 8.7 mg/dL (8.4-10.2); Potassium 3.8 mmol/L (3.5-5.1)
[2019-10-27] MEDS: IPRATROPIUM-ALBUTEROL 3 ML NEB INHALATION SCH ×3 (08:03→20:56)
[2019-10-27] MEDS: D5-0.45% NACL WITH KCL 20MEQ/L 1,000 ML IV SCH ×2 (08:40→21:51)
[2019-10-27] MEDS: HYDROmorphone 0.5 MG/0.5 ML SYRINGE IVP PRN ×6 (08:52→22:33)
[2019-10-27] MEDS: INSULIN ASPART (NovoLOG) 100 UNIT/ML VIAL SQ SCH ×4 (08:55→20:59)
[2019-10-27] MEDS: SODIUM CHLORIDE 0.9% 1,000 ML IV SCH ×2 (08:55→19:39)
[2019-10-27] MEDS: ESCITALOPRAM 5 MG TAB PO SCH ×2 (08:58→11:07)
[2019-10-27] MEDS: FUROSEMIDE 20 MG TAB PO SCH ×2 (08:58→11:08)
[2019-10-27] MEDS: PANTOPRAZOLE 40 MG/10 ML VIAL IVP SCH ×2 (08:58→20:00)
[2019-10-27] MEDS: HEPARIN SODIUM,PORCINE 5,000 UNIT/ML 1 ML VIAL SQ SCH ×2 (08:59→20:00)
--- NOTE | 2019-10-27 11:31 | P.PN ---
Subjective Progress Note Date: 10/27/19 Patient seen and examined at bedside. Slightly confused this morning. No obvious flatus or bowel movement per nursing. Nasogastric tube in place. Objective - Vital Signs Vital signs: Vital Signs Temp 98.3 F 10/27/19 05:00 Pulse 90 10/27/19 08:25 Resp 15 10/27/19 05:00 BP 127/75 10/27/19 05:00 Pulse Ox 97 10/27/19 05:00 Intake & Output 10/26/19 10/27/19 10/27/19 18:59 06:59 18:59 Intake Total 1654 320 Output Total 125 500 Balance 1529 -180 Weight 75.5 kg Intake: IV 1004 Intake, IV Titration 650 320 Amount D5-0.45% NaCl with KCl 320 20Meq/l 1,000 ml @ 80 mls /hr IV .[id number] [facility] Rx#: [id number] Sodium Chloride 0.9% 1, 600 000 ml @ 75 mls/hr IV . [id number] [facility] Rx#:[id number] cefTRIAXone 1 gm In 50 Sodium Chloride 0.9% 50 ml @ 100 mls/hr IVPB Q24HR [facility] Rx#:[id number] Output: Urine 100 500 Estimated Blood Loss 25 Other: Voiding Method Urinal Indwelling Catheter Indwelling Catheter Diaper - Constitutional General appearance: Present: cooperative, no acute distress - Respiratory Details: No difficulty with respiration - Gastrointestinal Gastrointestinal Comment(s): Soft, nontender, nondistended, no rebound, no guarding, midline incision clean, dry intact with dressing in place - Musculoskeletal Musculoskeletal: Present: generalized weakness - Labs CBC & Chem 7: 10/27/19 06:32 10/27/19 06:32 Labs: Abnormal Lab Results - Last 24 Hours (Table) 10/26/19 10/26/19 10/26/19 Range/Units 16:56 18:10 20:27 WBC (3.8-10.6) k/uL RBC (4.30-5.90) m/uL Hgb (13.0-17.5) gm/dL Hct (39.0-53.0) % Neutrophils # (1.3-7.7) k/uL Carbon Dioxide (22-30) mmol/L BUN (9-20) mg/dL Glucose (74-99) mg/dL POC Glucose (mg/dL) 102 H 122 H 138 H (75-99) mg/dL 10/27/19 10/27/19 10/27/19 Range/Units 06:32 06:32 07:24 WBC 12.5 H (3.8-10.6) k/uL RBC 3.96 L (4.30-5.90) m/uL Hgb 11.8 L (13.0-17.5) gm/dL Hct 36.7 L (39.0-53.0) % Neutrophils # 9.8 H (1.3-7.7) k/uL Carbon Dioxide 31 H (22-30) mmol/L BUN 34 H (9-20) mg/dL Glucose 155 H (74-99) mg/dL POC Glucose (mg/dL) 173 H (75-99) mg/dL Assessment and Plan Plan: Postoperative day #1, exploratory laparotomy and release of small bowel obstruction Keep n.p.o., continue nasogastric tube decompression Continue IV fluid rehydration Continue pain control, added IV Tylenol Increase activity
[2019-10-27 12:00] LABS: Glucose,Whole Blood 151 mg/dL (75-99)
--- NOTE | 2019-10-27 12:02 | XR ---
EXAMINATION TYPE: XR chest 1V DATE OF EXAM: 10/27/2019 CLINICAL HISTORY: Difficulty breathing and swallowing. TECHNIQUE: Single AP portable upright view of the chest is obtained. COMPARISON: Chest x-ray from 2 days earlier FINDINGS: New nasogastric tube, tip projecting below diaphragm. Chronic parenchymal changes with bib asilar scarring and/or atelectasis. No new focal airspace opacity, pleural effusion, or pneumothorax. Somewhat low lung volumes. Stable mild cardiomegaly without described thoracic aorta. Osseous struct ures remain demineralized. IMPRESSION: Favor chronic changes without new suspicious acute pulmonary process.
[2019-10-27] MEDS: ACETAMINOPHEN IV (For NPO) 1,000 MG in EMPTY BAG 1 BAG IVPB PRN ×3 (12:32→23:26)
[2019-10-27 16:56] LABS: Glucose,Whole Blood 175 mg/dL (75-99)
[2019-10-27] MEDS ORDERED: FUROSEMIDE 10 MG/ML 2 ML VIAL IV ONE (17:09)
[2019-10-27] MEDS: LORazepam 2 MG/ML INJ IV PRN ×2 (17:32→20:50)
[2019-10-27] MEDS ORDERED: MORPHINE SULFATE 4 MG/ML SYRINGE IVP STA (19:14)
[2019-10-27 20:32] LABS: Glucose,Whole Blood 149 mg/dL (75-99)
--- NOTE | 2019-10-27 20:34 | PN ---
PROGRESS NOTE DATE OF SERVICE: 10/27/2019 This 78-year-old gentleman was admitted with vomiting, also had history of CHF also. The patient had bowel obstruction. Patient underwent surgery by Dr. Lugo. Dr. Lugo performed exploratory laparotomy and as well as released small-bowel obstruction and adhesiolysis. The patient continues to be confused. NG tube was reinserted. The most recent chest x-ray was personally reviewed by me and showed some increased bronchovascular markings and atelectasis. Surgery is following the patient closely. PAST MEDICAL HISTORY: Reviewed. REVIEW OF SYSTEMS: Could not be taken. The patient is confused. CURRENT MEDICATIONS: 1. Tylenol p.r.n. 2. [place] 5 mg. 3. Albuterol t.i.d. p.r.n. 4. DuoNeb t.i.d. 5. Xanax. 6. Rocephin 1 g daily. 7. Lexapro. 8. Lasix. 9. Heparin. 10.Dilaudid. 11.Ativan. 12.Narcan. 13.Protonix. 14.Doses are reviewed. PHYSICAL EXAM: Patient is conscious, confused. Pulse is 99. Blood pressure 117/69, respirations 16, temperature 98.5, pulse ox 98% on room air. HEENT: Conjunctivae normal. Oral mucosa moist. NECK is no jugular venous distention. No carotid bruit. No lymph node enlargement. Cardiovascular system: S1, S2 muffled. RESPIRATORY: Breath sounds diminished in the bases. Bilateral scattered rhonchi and crackles. ABDOMEN: Soft, nontender. LEGS are no edema. No swelling. CENTRAL NERVOUS SYSTEM: No focal deficits. LAB STUDIES: WBC 12.2, hemoglobin 11.8, sodium 140, potassium 3.8. Accu-Cheks 173. ASSESSMENT: 1. Acute small-bowel obstruction status post exploratory laparotomy with release of small bowel obstruction and adhesiolysis. 2. Possible upper gastrointestinal bleeding, present on admission. 3. History of congestive heart failure with chronic diastolic dysfunction, ejection fraction 50-55 percent. 4. Atelectasis. 5. History of chronic obstructive pulmonary disease. 6. Dementia. 7. Diabetes type 2. 8. Hypertension. 9. History of pneumonia. 10.History of rheumatoid arthritis with deformities. 11.History of bilateral pulmonary fibrosis. 12.Chronic bilateral knee pain, degenerative joint disease. 13.History of abdominal aortic aneurysm repair. 14.History of cholecystectomy. 15.History of hernia repair. 16.History of degenerative joint disease. 17.Remote history of nicotine dependence. 18.Gait dysfunction. RECOMMENDATIONS AND DISCUSSION: Recommend to continue current medications, monitoring, management and symptomatic treatment. Otherwise, at this time I recommend to continue with bronchodilators and continue incentive spirometry. Otherwise NG tube. Rest of recommendations per surgery. DVT prophylaxis. Follow closely with surgery. Further recommendations to follow. MMODL / IJN: [id number] /
[2019-10-28] MEDS: HYDROmorphone 0.5 MG/0.5 ML SYRINGE IVP PRN ×5 (01:54→16:46)
[2019-10-28] MEDS: LORazepam 2 MG/ML INJ IV PRN ×4 (05:34→18:28)
[2019-10-28] MEDS: ACETAMINOPHEN IV (For NPO) 1,000 MG in EMPTY BAG 1 BAG IVPB PRN (06:08)
[2019-10-28 06:58] LABS: Glucose,Whole Blood 103 mg/dL (75-99)
[2019-10-28] MEDS: IPRATROPIUM-ALBUTEROL 3 ML NEB INHALATION SCH ×3 (07:54→20:06)
[2019-10-28 08:07] LABS: Basophils # (A) 0.1 k/uL (0-0.2); Basophils % (A) 1 %; Eosinophils # (A) 0.6 k/uL (0-0.7); Eosinophils % (A) 5 %; HCT 32.8 % (39.0-53.0); HGB 10.6 gm/dL (13.0-17.5); Lymphocytes # (A) 1.7 k/uL (1.0-4.8); Lymphocytes % (A) 15 %; MCH 30.3 pg (25.0-35.0); MCHC 32.4 g/dL (31.0-37.0); MCV 93.5 fL (80.0-100.0); Mean Platelet Volume 7.3; Monocytes # (A) 0.8 k/uL (0-1.0); Monocytes % (A) 7 %; Neutrophils # (A) 8.1 k/uL (1.3-7.7); Neutrophils % (A) 70 %; Platelet Count 320 k/uL (150-450); RBC 3.51 m/uL (4.30-5.90); RDW 14.9 % (11.5-15.5); WBC 11.4 k/uL (3.8-10.6)
[2019-10-28 08:15] LABS: Calcium 8.5 mg/dL (8.4-10.2); Potassium 3.5 mmol/L (3.5-5.1)
[2019-10-28] MEDS: D5-0.45% NACL WITH KCL 20MEQ/L 1,000 ML IV SCH ×2 (08:51→14:45)
[2019-10-28] MEDS: INSULIN ASPART (NovoLOG) 100 UNIT/ML VIAL SQ SCH ×4 (08:51→21:17)
[2019-10-28] MEDS: SODIUM CHLORIDE 0.9% 1,000 ML IV SCH ×2 (08:52→22:34)
[2019-10-28] MEDS: PANTOPRAZOLE 40 MG/10 ML VIAL IVP SCH ×2 (09:08→21:22)
[2019-10-28] MEDS: HEPARIN SODIUM,PORCINE 5,000 UNIT/ML 1 ML VIAL SQ SCH ×2 (09:08→21:21)
--- NOTE | 2019-10-28 09:29 | P.PN ---
Subjective Progress Note Date: 10/28/19 Patient seen and examined at bedside. Episodes of agitation yesterday and patient did remove nasogastric tube multiple times after multiple replacements. Currently, he is not tolerating nasogastric tube placement. He has not had any emesis episodes. During the time of placement, output was only 75 mL. Currently, he is confused and not answering questions appropriately. No evidence of bowel movement. Objective - Vital Signs Vital signs: Vital Signs Temp 98.0 F 10/28/19 05:00 Pulse 94 10/28/19 08:08 Resp 14 10/28/19 05:00 BP 135/74 10/28/19 05:00 Pulse Ox 92 L 10/28/19 07:57 Intake & Output 10/27/19 10/28/19 10/28/19 17:59 06:59 18:59 Intake Total Output Total Balance Weight Intake: Intake, IV Titration Amount ACETAMINOPHEN IV (For NPO ) 1,000 mg In Empty Bag 1 bag @ 400 mls/hr IVPB Q6HR PRN Rx#:[id number] D5-0.45% NaCl with KCl 20Meq/l 1,000 ml @ 80 mls /hr IV .[id number] JESSENIA Rx#: [id number] Output: Gastric Drainage Urine Uretheral (Draper) Emesis Other: Voiding Method # Bowel Movements - Constitutional General appearance: Present: cooperative, no acute distress - Respiratory Details: No difficulty with respiration - Gastrointestinal Gastrointestinal Comment(s): Soft, appropriate tenderness, nondistended, no rebound, no guarding, midline incision clean, dry and intact - Musculoskeletal Musculoskeletal: Present: generalized weakness - Labs CBC & Chem 7: 10/28/19 07:42 10/28/19 07:42 Labs: Abnormal Lab Results - Last 24 Hours (Table) 10/27/19 10/27/19 10/27/19 Range/Units 11:49 16:53 20:31 WBC (3.8-10.6) k/uL RBC (4.30-5.90) m/uL Hgb (13.0-17.5) gm/dL Hct (39.0-53.0) % Neutrophils # (1.3-7.7) k/uL Chloride (98-107) mmol/L BUN (9-20) mg/dL POC Glucose (mg/dL) 151 H 175 H 149 H (75-99) mg/dL 10/28/19 10/28/19 10/28/19 Range/Units 06:56 07:42 07:42 WBC 11.4 H (3.8-10.6) k/uL RBC 3.51 L (4.30-5.90) m/uL Hgb 10.6 L (13.0-17.5) gm/dL Hct 32.8 L (39.0-53.0) % Neutrophils # 8.1 H (1.3-7.7) k/uL Chloride 110 H (98-107) mmol/L BUN 28 H (9-20) mg/dL POC Glucose (mg/dL) 103 H (75-99) mg/dL Assessment and Plan Plan: Postoperative day #2, exploratory laparotomy and release of small bowel obstruction Keep n.p.o., patient continues to remove nasogastric tube and is not tolerating placement at this time. We will order abdominal x-ray for evaluation of resolution of obstructive pattern. He is having appropriate bowel sounds at this time and is not distended. Continue IV fluid rehydration Continue pain control, added IV Tylenol Increase activity as tolerated
[2019-10-28] MEDS: FUROSEMIDE 20 MG TAB PO SCH (09:37)
[2019-10-28] MEDS: ESCITALOPRAM 5 MG TAB PO SCH (09:40)
[2019-10-28] MEDS ORDERED: ACETAMINOPHEN IV (For NPO) 1,000 MG in EMPTY BAG 1 BAG IVPB SCH (12:00)
[2019-10-28 12:10] LABS: Glucose,Whole Blood 114 mg/dL (75-99)
[2019-10-28] MEDS: FUROSEMIDE 10 MG/ML 2 ML VIAL IV SCH ×2 (12:16→21:22)
--- NOTE | 2019-10-28 12:23 | XR ---
EXAMINATION TYPE: XR abdomen 2V DATE OF EXAM: 10/28/2019 CLINICAL DATA: 78 year-old male abdominal distention, [facility] COMPARISON: 10/26/2019 FINDINGS: Similar patchy left basilar opacity. No evidence for free intraperitoneal air. The bowel throughout. Some small bowel loops are dilated up to 4.8 cm but air is present throughout t he colon. Anterior midline skin alex. IMPRESSION: 1. Anterior midline skin alex suggesting recent surgery. 2. Gassy bowel loops throughout. Small bowel is dilated up to 4.8 cm but air is present throughout th e colon as well. Findings suggest postoperative ileus. 3. Patchy left basilar atelectasis versus infiltrate.
[2019-10-28] MEDS ORDERED: ACETAMINOPHEN IV (For NPO) 1,000 MG in EMPTY BAG 1 BAG IVPB PRN (16:00)
[2019-10-28 17:28] LABS: Glucose,Whole Blood 118 mg/dL (75-99)
[2019-10-28 20:51] LABS: Glucose,Whole Blood 118 mg/dL (75-99)
--- NOTE | 2019-10-28 20:57 | PN ---
PROGRESS NOTE 10/28/2019 This 78-year-old gentleman with a past medical history of multiple medical problems, admitted with bowel obstruction, had surgery. Dr. Lugo is following the patient closely. Patient had some pain issues last night but after pain medication patient feeling better. No chest pain. No palpitations. No fever. EXAM: The patient is drowsy. Pulse is 94, blood pressure 111/52, respiration 22, temperature 97.7, pulse ox 98% on room air. HEENT: Conjunctivae normal. Oral mucosa moist. NECK: No jugular venous distention. No lymph node enlargement. CARDIOVASCULAR: S1, S2. RESPIRATORY: Diminished breath sounds at the bases. A few rhonchi, no crackles. ABDOMEN: Status post surgery. Bowel sounds diminished. LEGS: No edema, no swelling. NERVOUS SYSTEM: Higher functions mentioned earlier. Moves all four limbs. No focal deficits. LYMPHATICS: No lymph node in neck or axilla. SKIN: No rash. JOINTS: No active deforming arthropathy. LAB STUDIES: WBC 11.4, hemoglobin 10.6, sodium 140, potassium 3.5, glucose 114. ASSESSMENT: 1. Acute small-bowel obstruction status post exploratory laparotomy with release of small-bowel obstruction and adhesiolysis. 2. Possible upper gastrointestinal bleeding, present on admission. 3. History of congestive heart failure with chronic diastolic dysfunction, ejection fraction 50-55 percent. 4. Atelectasis. 5. History of chronic obstructive pulmonary disease. 6. Dementia. 7. Hyperlipidemia. 8. Hypertension. 9. History of pneumonia. 10.History of rheumatoid arthritis with deformities. 11.History of bilateral pulmonary fibrosis. 12.History of bilateral knee pain, degenerative joint disease. 13.History of abdominal aortic aneurysm repair. 14.History of cholecystectomy. 15.History of hernia repair. 16.History of degenerative joint disease. 17.Remote history of nicotine dependence. 18.Gait dysfunction. RECOMMENDATIONS AND DISCUSSION: In this 78-year-old gentleman who presented with multiple complex medical issues, we will monitor the patient closely, continue the current management and symptomatic treatment. Otherwise, at this time pain medications. The patient pain appears to be improving at this time. Closely follow with Surgery. Guarded prognosis. Further recommendations to follow. MMODL / IJN: [id number] /
[2019-10-29] MEDS: LORazepam 2 MG/ML INJ IV PRN ×3 (06:09→22:15)
[2019-10-29 06:58] LABS: Glucose,Whole Blood 107 mg/dL (75-99)
[2019-10-29] MEDS: IPRATROPIUM-ALBUTEROL 3 ML NEB INHALATION SCH ×3 (07:51→19:08)
[2019-10-29] MEDS: FUROSEMIDE 10 MG/ML 2 ML VIAL IV SCH ×2 (09:00→20:53)
[2019-10-29] MEDS: PANTOPRAZOLE 40 MG/10 ML VIAL IVP SCH ×2 (09:00→20:54)
[2019-10-29] MEDS: HEPARIN SODIUM,PORCINE 5,000 UNIT/ML 1 ML VIAL SQ SCH ×2 (09:00→20:53)
[2019-10-29] MEDS: HYDROmorphone 0.5 MG/0.5 ML SYRINGE IVP PRN ×3 (09:00→19:39)
[2019-10-29] MEDS: INSULIN ASPART (NovoLOG) 100 UNIT/ML VIAL SQ SCH ×4 (09:06→20:54)
--- NOTE | 2019-10-29 09:34 | P.PN ---
Subjective Progress Note Date: 10/29/19 Principal diagnosis: S/P release of small bowel obstruction The patient is postoperative day 3 places of adhesions for small bowel obstruction. He denies any pain. Denies nausea or vomiting. He's not sure if he's had any flatus. Objective - Vital Signs Vital signs: Vital Signs Temp 98.9 F 10/29/19 05:00 Pulse 105 H 10/29/19 08:04 Resp 20 10/29/19 05:00 BP 132/63 10/29/19 05:00 Pulse Ox 93 L 10/29/19 05:00 Intake & Output 10/28/19 10/29/19 10/29/19 18:59 06:59 18:59 Intake Total 390 240 Output Total 1200 1000 Balance -810 -760 Intake: Intake, IV Titration 390 240 Amount ACETAMINOPHEN IV (For NPO 100 ) 1,000 mg In Empty Bag 1 bag @ 400 mls/hr IVPB Q6HR PRN Rx#:[id number] D5-0.45% NaCl with KCl 240 240 20Meq/l 1,000 ml @ 80 mls /hr IV .[id number] JESSENIA Rx#: [id number] cefTRIAXone 1 gm In 50 Sodium Chloride 0.9% 50 ml @ 100 mls/hr IVPB Q24HR [facility] Rx#:[id number] Output: Urine 1200 1000 Emesis 0 Other: Voiding Method Indwelling Catheter Indwelling Catheter # Bowel Movements 0 - Constitutional General appearance: Present: cooperative, no acute distress - Respiratory Respiratory: bilateral: CTA, diminished (At the bases) - Cardiovascular Rhythm: regular (Slightly tachycardic) - Gastrointestinal General gastrointestinal: Present: decreased bowel sounds, distended (Softly distended) Localized gastrointestinal: surgical scar: diffuse (Incision is intact clean and dry) - Labs CBC & Chem 7: 10/28/19 07:42 10/28/19 07:42 Labs: Abnormal Lab Results - Last 24 Hours (Table) 10/28/19 10/28/19 10/28/19 Range/Units 12:09 17:26 20:49 POC Glucose (mg/dL) 114 H 118 H 118 H (75-99) mg/dL 10/29/19 Range/Units 06:56 POC Glucose (mg/dL) 107 H (75-99) mg/dL Assessment and Plan (1) Small bowel obstruction Current Visit: Yes Status: Acute Code(s): K56.609 - UNSP INTESTNL OBST, UNSP TO PARTIAL VERSUS COMPLETE OBST SNOMED Code(s): 978992588 (2) Abdominal pain Current Visit: Yes Status: Acute Code(s): R10.9 - UNSPECIFIED ABDOMINAL PAIN SNOMED Code(s): 60940917 (3) Hematemesis Current Visit: Yes Status: Acute Code(s): K92.0 - HEMATEMESIS SNOMED Code(s): 0837015 Plan: Increase activity. Will start him on some popsicles and ice chips, if he tolerates that then he can have clear liquids this evening. Progressing slowly
--- NOTE | 2019-10-29 10:09 | CDI ---
Documentation Clarification Form Date: 10/29/2019 09:28:55 AM From: Jessy Green RN CCDS Admit Date: 10/25/2019 12:50:00 PM Patient Name: Colonel Bryan Ross Visit Number: [id number] Discharge Date: ATTENTION: The Clinical Documentation Specialists (CDI) and [facility] Coding Staff appreciate your assistance in clarifying documentation. Please respond to the clarification below the line at the bottom and electronically sign. The CDI & [facility] Coding staff will review the response and follow-up if needed. Please note: Queries are made part of the Legal Health Record. If you have any questions, please contact the author of this message via ITS. Dr. Faustino Wade The patient continues to be confused is documented in your progress note 10/26 History/Risk Factors: 78-year-old male presents to the ED from Memory Care Unit of [facility] for abdominal pain and coffee ground emesis. Patient admitted with bowel obstruction on 10/25 had an exploratory laparotomy with release of small bowel due to adhesions. Medical history CHF, COPD, DM, HTN and Dementia Clinical Indicators: Per Nursing notes 10/[address] Wade about poor pain control today. Order received for morphine to try instead. Per Nursing notes 10/26 Pt has pulled NG 2 rosanne. to be notified Per Nursing note 10/27 Dr. Stewart in to see patient. Abdomen xray ordered. Aware patient has been agitated and pulled NG tube out last shift. Okay to keep out at this time pending xray results. Labs: 10/26 Wbc 12.5, Neutrophils 9.8, Treatment: 10/24 Tylneol po Q hr fever or pain, Dilaudid 0.5mg Ivp Q 6h prn d/cd, 10/25, 10/25 Dilaudid 1mg Ivp q 3hr prn d/c 10/26, Dialudid 0.5 Ivp q 3hr prn dc 10/26, 10/26 Ativan 0.5mg Ivp q4hr prn anxiety; Morphine 4mg IVP X1, Dilaudid 0.5mg Ivp Q 2hr prn, Acetaminophen IVPB x 4 bags prn pain, 10/27 Acetaminophen IVPB x 4 bags prn pain, In your professional opinion, please clarify the etiology of the Confusion, if known. * Dementia (if know, specify Type and if with/without Behavioral Disturbance) * Metabolic Encephalopathy (specify Type and Underlying Medical Illness) * Other condition (please specify) * Unable to determine (Last Revision: November 2017) Metabolic Encephalopathy multifactorial MTDD
--- NOTE | 2019-10-29 10:47 | CDI ---
Documentation Clarification Form Date: 10/29/2019 10:10:30 AM From: Jessy Green RN CCDS Admit Date: 10/25/2019 12:50:00 PM Patient Name: Colonel Bryan Ross Visit Number: [id number] Discharge Date: ATTENTION: The Clinical Documentation Specialists (CDI) and [facility] Coding Staff appreciate your assistance in clarifying documentation. Please respond to the clarification below the line at the bottom and electronically sign. The CDI & [facility] Coding staff will review the response and follow-up if needed. Please note: Queries are made part of the Legal Health Record. If you have any questions, please contact the author of this message via ITS. Dr. Faustino Wade History of congestive heart failure with chronic diastolic dysfunction, ejection fraction 50% -55% is documented in the H&P 10/24 History/Risk Factors: 78-year-old male presents as a transfer from [facility] for abdominal pain with coffee ground emesis. The patient had an exploratory laparotomy with release of small bowel from adhesions. Medical history includes CHF, COPD, HTN, Pulmonary fibrosis, Dementia and DM. Clinical Indicators: Per your progress note 10/26 recent chest x ray was personally reviewed by me and shoed some increased bronchovesicular markings and atelectasis VS/Pulse OX: /75 91 98.3 Axillary 15 97% 2L nasal cannula Echocardiogram Results: Per H&P 10/24 chronic diastolic dysfunction, ejection fraction 50-55% Chest X Ray: 3 patchy lower lobe and right perihilar infiltrate. Differential diagnosis includes early venous congestion vs early pneumonia Chest X Ray: Favor chronic changes without new suspicious acute pulmonary process. Treatment: 10/25 Lasix po daily dcd 10/27, 10/26 Lasix 20 mg Ivp x 1, 10/27 Lasix Ivp Q 12 Hr In your professional opinion, can you please clarify the acuity and type of CHF if known? * Acute on Chronic Diastolic Heart Failure * Unable to Determine * Other, please specify (Last Revision: November 2017) Chronic Diastolic Heart Failure MTDD
[2019-10-29] MEDS: D5-0.45% NACL WITH KCL 20MEQ/L 1,000 ML IV SCH (11:29)
[2019-10-29 11:56] LABS: Glucose,Whole Blood 144 mg/dL (75-99)
[2019-10-29] MEDS: ESCITALOPRAM 5 MG TAB PO SCH (12:51)
[2019-10-29] MEDS: SODIUM CHLORIDE 0.9% 1,000 ML IV SCH (13:07)
[2019-10-29 16:59] LABS: Glucose,Whole Blood 154 mg/dL (75-99)
[2019-10-29 19:52] LABS: Glucose,Whole Blood 102 mg/dL (75-99)
--- NOTE | 2019-10-29 19:56 | XR ---
EXAMINATION TYPE: XR chest 1V portable DATE OF EXAM: 10/29/2019 CLINICAL HISTORY: Difficulty breathing progress study. TECHNIQUE: Single AP portable upright view of the chest is obtained. COMPARISON: Chest x-ray from 2 days earlier and older x-rays. CT chest September 15, 2018 FINDINGS: Interval removal of nasogastric tube. Reticular parenchymal changes bilaterally with persi stent bibasilar scarring and/or atelectasis. Some increased alveolar and interstitial opacities centr ally in both lungs. No new pleural effusion or pneumothorax. Low lung volumes are redemonstrated. Sta ble cardiomegaly with atherosclerotic thoracic aorta. Osseous structures remain demineralized. Degen erative change bilateral shoulders redemonstrated. IMPRESSION: New central mild alveolar and interstitial edema bilaterally on background low lung volum es and chronic parenchymal change along with cardiomegaly. Correlate for fluid overload state and/or CHF exacerbation.
[2019-10-29] MEDS ORDERED: HEPARIN SODIUM,PORCINE 5,000 UNIT/ML 1 ML VIAL SQ SCH (21:15)
--- NOTE | 2019-10-29 22:32 | PN ---
PROGRESS NOTE DATE OF SERVICE: 10/29/2019 This 78-year-old gentleman admitted after exploratory laparotomy for acute small bowel obstruction is being closely monitored. Patient is slightly more confused at this time. A chest x-ray done today which was personally reviewed by me showed some evidence of fluid overload and bilateral atelectasis also. The patient is being closely monitored. No chest pain. No palpitations. No fever. PAST MEDICAL HISTORY: Reviewed. REVIEW OF SYSTEMS: Could not be taken, the patient is confused. CURRENT MEDICATIONS: 1. Tylenol p.r.n. 2. [place] 5 mg. 3. DuoNeb q.i.d. and p.r.n. 4. Xanax. 5. Rocephin 1 g. 6. Lexapro. 7. Lasix 20 mg IV b.i.d. 8. Heparin. 9. Dilaudid. 10.NovoLog. 11.Narcan. 12.Protonix. PHYSICAL EXAM: Patient is conscious, confused. Pulse 114, blood pressure 109/59, respirations 16, temperature 97.4, pulse ox 98% on room air. HEENT: Conjunctivae normal. Oral mucosa moist. NECK: No jugular venous distention. No lymph node enlargement. CARDIOVASCULAR: S1, S2. RESPIRATORY: Diminished breath sounds at the bases. Bilateral scattered rhonchi and crackles. ABDOMEN: Soft. Status post surgery. LEGS: No edema, no swelling. NERVOUS SYSTEM: No focal deficits. LABS: WBC 11, hemoglobin 10.6, sodium 140, potassium 3.5. ASSESSMENT: 1. Acute small-bowel obstruction status post exploratory laparotomy with release of small-bowel obstruction and adhesiolysis. 2. Possible upper gastrointestinal bleeding, present on admission, improved. 3. History of congestive heart failure with acute on chronic diastolic dysfunction, ejection fraction 50-55%. 4. Bilateral atelectasis, extensive and possible chronic obstructive pulmonary disease acute exacerbation. 5. Dementia. 6. Hyperlipidemia. 7. Hypertension. 8. History of pneumonia. 9. History of rheumatoid arthritis with deformities. 10.History of bilateral pulmonary fibrosis. 11.Bilateral knee pain, degenerative joint disease. 12.History of abdominal aortic aneurysm repair. 13.History of cholecystectomy. 14.History of hernia repair. 15.History of degenerative joint disease. 16.Remote history of nicotine dependence. 17.Gait dysfunction. RECOMMENDATIONS AND DISCUSSION: Recommend to continue current management, continue symptomatic treatment. I recommend to continue with IV Lasix at this time. Monitor fluid and electrolyte balance closely and we will cut down the IV fluids to 50 mL/hour. Other than that, optimize bronchodilator treatment. If the patient is not feeling better, improving, I would also recommend a small dose of IV steroids if okay with Surgery. We will continue to monitor. Further recommendations to follow. ELVIS / LETHAN: [id number] /
[2019-10-29] MEDS: methylPREDNISolone SOD SUCCI 40 MG/ML 1 ML VIAL IV SCH (23:57)
[2019-10-30] MEDS: HYDROmorphone 0.5 MG/0.5 ML SYRINGE IVP PRN ×6 (00:04→21:50)
[2019-10-30] MEDS: D5-0.45% NACL WITH KCL 20MEQ/L 1,000 ML IV SCH ×2 (01:23→02:46)
[2019-10-30] MEDS: SODIUM CHLORIDE 0.9% 1,000 ML IV SCH ×2 (01:23→21:08)
[2019-10-30] MEDS: methylPREDNISolone SOD SUCCI 40 MG/ML 1 ML VIAL IV SCH ×4 (05:45→23:41)
[2019-10-30 07:21] LABS: Glucose,Whole Blood 162 mg/dL (75-99)
[2019-10-30] MEDS: FORMOTEROL FUMARATE 20 MCG/2 ML NEBU INHALATION SCH ×2 (07:44→20:10)
[2019-10-30] MEDS: BUDESONIDE 1 MG/2 ML NEBU INHALATION SCH ×2 (07:44→20:10)
[2019-10-30] MEDS: IPRATROPIUM-ALBUTEROL 3 ML NEB INHALATION SCH ×3 (07:44→20:10)
[2019-10-30 08:24] LABS: Basophils % (A) 0 %; Eosinophils % (A) 0 %; HCT 34.5 % (39.0-53.0); HGB 11.3 gm/dL (13.0-17.5); Lymphocytes # (A) 0.7 k/uL (1.0-4.8); Lymphocytes % (A) 7 %; MCH 29.9 pg (25.0-35.0); MCHC 32.8 g/dL (31.0-37.0); MCV 91.2 fL (80.0-100.0); Mean Platelet Volume 7.1; Monocytes # (A) 0.1 k/uL (0-1.0); Monocytes % (A) 1 %; Neutrophils % (A) 91 %; Platelet Count 352 k/uL (150-450); RBC 3.78 m/uL (4.30-5.90); RDW 14.7 % (11.5-15.5); WBC 9.9 k/uL (3.8-10.6)
[2019-10-30] MEDS: FUROSEMIDE 10 MG/ML 4 ML VIAL IV SCH ×2 (08:27→21:11)
[2019-10-30] MEDS: PANTOPRAZOLE 40 MG/10 ML VIAL IVP SCH (08:27)
[2019-10-30] MEDS: HEPARIN SODIUM,PORCINE 5,000 UNIT/ML 1 ML VIAL SQ SCH ×2 (08:27→21:11)
[2019-10-30] MEDS: ESCITALOPRAM 5 MG TAB PO SCH (08:27)
[2019-10-30] MEDS: INSULIN ASPART (NovoLOG) 100 UNIT/ML VIAL SQ SCH ×4 (08:28→21:11)
[2019-10-30 08:46] LABS: Calcium 8.6 mg/dL (8.4-10.2); Potassium 4.1 mmol/L (3.5-5.1)
[2019-10-30] MEDS: LORazepam 2 MG/ML INJ IV PRN ×2 (10:58→23:42)
[2019-10-30 12:11] LABS: Glucose,Whole Blood 196 mg/dL (75-99)
[2019-10-30] MEDS ORDERED: BISACODYL 10 MG SUPP RECTAL ONE (13:44)
--- NOTE | 2019-10-30 13:44 | P.PN ---
Subjective Progress Note Date: 10/30/19 Principal diagnosis: S/P release of small bowel obstruction The patient is postoperative day for release of small bowel obstruction. He is tolerating clear liquids without nausea or vomiting. No bowel movement since admission. Speech pathology is working with him. He is having some coughing and choking while eating. Objective - Vital Signs Vital signs: Vital Signs Temp 97.6 F 10/30/19 13:00 Pulse 112 H 10/30/19 13:00 Resp 17 10/30/19 13:00 BP 133/74 10/30/19 13:00 Pulse Ox 94 L 10/30/19 13:00 Intake & Output 10/29/19 10/30/19 10/30/19 18:59 06:59 18:59 Intake Total 830 Output Total 600 1300 Balance -600 -470 Weight 77.5 kg Intake: Intake, IV Titration 240 Amount D5-0.45% NaCl with KCl 240 20Meq/l 1,000 ml @ 80 mls /hr IV .[id number] [facility] Rx#: [id number] Oral 590 Output: Urine 600 1300 Uretheral (Draper) 1300 Other: Voiding Method Indwelling Catheter Indwelling Catheter Indwelling Catheter # Bowel Movements 0 - Constitutional General appearance: Present: cooperative, no acute distress - Gastrointestinal General gastrointestinal: Present: distended (Slightly distended and tympanitic ), normal bowel sounds, soft Localized gastrointestinal: surgical scar: diffuse (Incision is intact clean and dry) - Labs CBC & Chem 7: 10/30/19 07:51 10/30/19 07:51 Labs: Abnormal Lab Results - Last 24 Hours (Table) 10/29/19 10/29/19 10/30/19 Range/Units 16:56 19:51 07:10 RBC (4.30-5.90) m/uL Hgb (13.0-17.5) gm/dL Hct (39.0-53.0) % Neutrophils # (1.3-7.7) k/uL Lymphocytes # (1.0-4.8) k/uL Glucose (74-99) mg/dL POC Glucose (mg/dL) 154 H 102 H 162 H (75-99) mg/dL 10/30/19 10/30/19 10/30/19 Range/Units 07:51 07:51 11:27 RBC 3.78 L (4.30-5.90) m/uL Hgb 11.3 L (13.0-17.5) gm/dL Hct 34.5 L (39.0-53.0) % Neutrophils # 9.0 H (1.3-7.7) k/uL Lymphocytes # 0.7 L (1.0-4.8) k/uL Glucose 158 H (74-99) mg/dL POC Glucose (mg/dL) 196 H (75-99) mg/dL Assessment and Plan (1) Small bowel obstruction Current Visit: Yes Status: Acute Code(s): K56.609 - UNSP INTESTNL OBST, UNSP TO PARTIAL VERSUS COMPLETE OBST SNOMED Code(s): 953183526 (2) Abdominal pain Current Visit: Yes Status: Acute Code(s): R10.9 - UNSPECIFIED ABDOMINAL PAIN SNOMED Code(s): 33542221 (3) Hematemesis Current Visit: Yes Status: Acute Code(s): K92.0 - HEMATEMESIS SNOMED Code(s): 8573965 Plan: Diet will be advanced. I'll have the nurse give him a suppository to stimulate bowel function. Surgically he would be stable for discharge tomorrow if he tolerates a diet. Progressing Slowly.
[2019-10-30 17:20] LABS: Glucose,Whole Blood 225 mg/dL (75-99)
[2019-10-30 20:05] LABS: Glucose,Whole Blood 177 mg/dL (75-99)
[2019-10-30] MEDS: PANTOPRAZOLE 40 MG TABLET PO SCH (21:11)
--- NOTE | 2019-10-30 23:08 | PN ---
PROGRESS NOTE DATE OF SERVICE: 10/30/2019 This 78-year-old gentleman who was admitted after surgery for small bowel obstruction is being closely monitored. No chest pain. No palpitations. No fever. PHYSICAL EXAMINATION: Alert and oriented x3. Pulse 112, blood pressure 136/74, respiration 17, temperature 97.6, pulse ox 94% on room air. HEENT: Conjunctivae normal. NECK: No jugular venous distention. CARDIOVASCULAR SYSTEM: S1, S2 muffled. RESPIRATORY SYSTEM: Breath sounds diminished at the bases. A few scattered rhonchi. ABDOMEN: Soft, non-tender. LEGS: No edema. No swelling. NERVOUS SYSTEM: No focal deficit. LABS: WBC 9.9, hemoglobin 11.3, glucose 158. ASSESSMENT: 1. Acute small-bowel obstruction, status post exploratory laparotomy with release of small-bowel obstruction and adhesiolysis. 2. Possible upper gastrointestinal bleeding, present on admission, improved. 3. History of congestive heart failure with acute on chronic diastolic dysfunction, ejection fraction 50% to 55%. 4. Bilateral atelectasis, extensive, with possible chronic obstructive pulmonary disease, acute exacerbation. 5. Dementia. 6. Hyperlipidemia. 7. Hypertension. 8. History of pneumonia. 9. History of rheumatoid arthritis and deformities. 10.Bilateral pulmonary fibrosis. 11.Bilateral knee pain, degenerative joint disease. 12.History of abdominal aortic aneurysm repair. 13.History of cholecystectomy. 14.History of hernia repair. 15.History of degenerative joint disease. 16.Remote history of nicotine dependence. 17.Gait dysfunction. RECOMMENDATIONS AND DISCUSSION: I recommend to continue current medications, continue with the monitoring, symptomatic treatment. Otherwise, I reviewed the repeat chest x-ray done yesterday which showed multiple lesions, and I recommend a repeat chest x-ray tomorrow. Continue to monitor. Continue the rest of the medications for now. Further recommendations to follow. Prognosis is guarded. Closely follow with Surgery. The sensorium was slightly improved today. Pain control appears to be better. MMODL / IJN: [id number] /
[2019-10-31] MEDS: D5-0.45% NACL WITH KCL 20MEQ/L 1,000 ML IV SCH ×3 (03:04→23:56)
[2019-10-31] MEDS: methylPREDNISolone SOD SUCCI 40 MG/ML 1 ML VIAL IV SCH ×3 (06:11→18:14)
[2019-10-31] MEDS: BUDESONIDE 1 MG/2 ML NEBU INHALATION SCH ×2 (07:36→20:02)
[2019-10-31] MEDS: IPRATROPIUM-ALBUTEROL 3 ML NEB INHALATION SCH ×3 (07:36→20:02)
[2019-10-31] MEDS: FORMOTEROL FUMARATE 20 MCG/2 ML NEBU INHALATION SCH ×2 (07:36→20:02)
[2019-10-31 07:40] LABS: Glucose,Whole Blood 186 mg/dL (75-99)
--- NOTE | 2019-10-31 08:25 | XR ---
EXAMINATION TYPE: XR chest 1V portable DATE OF EXAM: 10/31/2019 COMPARISON: 10/29/2019 HISTORY: Congestive heart failure TECHNIQUE: Single frontal view of the chest is obtained. FINDINGS: Reticular opacities have slightly improved in the interim. There are overall low lung volu mes. Cardiomediastinal silhouette is enlarged. Generalized osseous demineralization is seen. No sizab le pneumothorax or pleural effusion. IMPRESSION: Improved reticular interstitial opacities bilaterally in comparison the prior with persi stent low lung volumes.
[2019-10-31] MEDS: HEPARIN SODIUM,PORCINE 5,000 UNIT/ML 1 ML VIAL SQ SCH ×2 (09:05→20:31)
[2019-10-31] MEDS: INSULIN ASPART (NovoLOG) 100 UNIT/ML VIAL SQ SCH ×4 (09:05→20:44)
[2019-10-31] MEDS: FUROSEMIDE 10 MG/ML 4 ML VIAL IV SCH ×2 (09:05→20:31)
[2019-10-31] MEDS: PANTOPRAZOLE 40 MG TABLET PO SCH ×2 (09:07→20:31)
[2019-10-31] MEDS: ESCITALOPRAM 5 MG TAB PO SCH (09:07)
[2019-10-31 09:33] LABS: Basophils % (A) 0 %; Eosinophils % (A) 0 %; HCT 34.9 % (39.0-53.0); HGB 11.3 gm/dL (13.0-17.5); Lymphocytes # (A) 0.8 k/uL (1.0-4.8); Lymphocytes % (A) 7 %; MCHC 32.4 g/dL (31.0-37.0); MCV 92.4 fL (80.0-100.0); Mean Platelet Volume 7.4; Monocytes # (A) 0.3 k/uL (0-1.0); Monocytes % (A) 3 %; Neutrophils # (A) 11.2 k/uL (1.3-7.7); Neutrophils % (A) 90 %; Platelet Count 340 k/uL (150-450); RBC 3.77 m/uL (4.30-5.90); RDW 14.7 % (11.5-15.5); WBC 12.4 k/uL (3.8-10.6)
[2019-10-31 09:48] LABS: Calcium 8.8 mg/dL (8.4-10.2); Potassium 3.5 mmol/L (3.5-5.1)
[2019-10-31] MEDS: ALPRAZolam 0.25 MG TAB PO PRN ×2 (10:05→20:31)
[2019-10-31 11:50] LABS: Glucose,Whole Blood 201 mg/dL (75-99)
--- NOTE | 2019-10-31 17:23 | P.PN ---
Subjective Progress Note Date: 10/31/19 Principal diagnosis: S/P release of small bowel obstruction The patient denies pain, nausea or vomiting. Has been tolerating a diet. Has confusion, his has stated this is normal after surgery. Objective - Vital Signs Vital signs: Vital Signs Temp 98.2 F 10/31/19 13:02 Pulse 105 H 10/31/19 13:02 Resp 18 10/31/19 13:02 BP 104/56 10/31/19 13:02 Pulse Ox 94 L 10/31/19 13:02 Intake & Output 10/30/19 10/31/19 10/31/19 18:59 06:59 18:59 Intake Total 720 450 Output Total 200 700 Balance 520 -250 Weight 74 kg Intake: Intake, IV Titration 720 450 Amount D5-0.45% NaCl with KCl 720 400 20Meq/l 1,000 ml @ 80 mls /hr IV .[id number] JESSENIA Rx#: [id number] cefTRIAXone 1 gm In 50 Sodium Chloride 0.9% 50 ml @ 100 mls/hr IVPB Q24HR JESSENIA Rx#:[id number] Output: Urine 200 700 Uretheral ([place]) 200 Other: Voiding Method Indwelling Catheter Indwelling Catheter Indwelling Catheter # Bowel Movements 0 - Constitutional General appearance: Present: cooperative, no acute distress - Gastrointestinal General gastrointestinal: Present: normal bowel sounds, soft Localized gastrointestinal: surgical scar: diffuse (incision healing. Minimal ecchymosis) - Labs CBC & Chem 7: 10/31/19 08:57 10/31/19 08:57 Labs: Abnormal Lab Results - Last 24 Hours (Table) 10/30/19 10/30/19 10/31/19 Range/Units 17:10 20:04 07:27 WBC (3.8-10.6) k/uL RBC (4.30-5.90) m/uL Hgb (13.0-17.5) gm/dL Hct (39.0-53.0) % Neutrophils # (1.3-7.7) k/uL Lymphocytes # (1.0-4.8) k/uL BUN (9-20) mg/dL Glucose (74-99) mg/dL POC Glucose (mg/dL) 225 H 177 H 186 H (75-99) mg/dL 10/31/19 10/31/19 10/31/19 Range/Units 08:57 08:57 11:45 WBC 12.4 H (3.8-10.6) k/uL RBC 3.77 L (4.30-5.90) m/uL Hgb 11.3 L (13.0-17.5) gm/dL Hct 34.9 L (39.0-53.0) % Neutrophils # 11.2 H (1.3-7.7) k/uL Lymphocytes # 0.8 L (1.0-4.8) k/uL BUN 31 H (9-20) mg/dL Glucose 209 H (74-99) mg/dL POC Glucose (mg/dL) 201 H (75-99) mg/dL Assessment and Plan (1) Small bowel obstruction Current Visit: Yes Status: Acute Code(s): K56.609 - UNSP INTESTNL OBST, UNSP TO PARTIAL VERSUS COMPLETE OBST SNOMED Code(s): 267795663 (2) Abdominal pain Current Visit: Yes Status: Acute Code(s): R10.9 - UNSPECIFIED ABDOMINAL PAIN SNOMED Code(s): 73686905 (3) Hematemesis Current Visit: Yes Status: Acute Code(s): K92.0 - HEMATEMESIS SNOMED Code(s): 8135814 Plan: Remove carrasco and have nursing bladder scan. Surgically, he should be stable for discharge tomorrow. Will write orders for after discharge.
[2019-10-31 17:33] LABS: Glucose,Whole Blood 153 mg/dL (75-99)
--- NOTE | 2019-10-31 18:50 | PN ---
PROGRESS NOTE DATE OF SERVICE: 10/31/2019 This 78-year-old gentleman who was admitted with acute small-bowel obstruction had exploratory laparotomy. The patient continues to be confused. The most recent chest x- ray, which was reviewed personally by me, showed some improvement of atelectasis. No chest pain. No palpitations. No fever. PHYSICAL EXAMINATION: Alert and oriented x3. Pulse is 105, blood pressure 104/56, respiration 18, temperature 98.2, pulse ox 94% on room air. HEENT: Conjunctivae normal. NECK: No jugular venous distention. CARDIOVASCULAR SYSTEM: S1, S2 muffled. RESPIRATORY SYSTEM: Breath sounds diminished at the bases. A few scattered rhonchi. ABDOMEN: Soft. Status post surgery. LEGS: No edema. No swelling. NERVOUS SYSTEM: No focal deficit. LABS: WBC 12.2, hemoglobin 11.3. ASSESSMENT: 1. Acute small-bowel obstruction, status post exploratory laparotomy as well as release of small bowel obstruction and adhesiolysis. 2. Possible upper gastrointestinal bleeding, present on admission, improved. 3. History of congestive heart failure, acute exacerbation, with acute on chronic diastolic dysfunction, ejection fraction 50% to 55%. 4. Bilateral atelectasis, extensive; possible chronic obstructive pulmonary disease, acute exacerbation. 5. Dementia. 6. Hyperlipidemia. 7. Hypertension. 8. History of pneumonia. 9. History of rheumatoid arthritis and deformities. 10.History of bilateral pulmonary fibrosis. 11.Bilateral knee pain, degenerative joint disease. 12.History of abdominal aortic aneurysm repair. 13.History of cholecystectomy. 14.History of hernia repair. 15.History of degenerative joint disease. 16.Remote history of nicotine dependence. 17.Gait dysfunction. 18.NO CODE, NO CPR, NO VENT. RECOMMENDATIONS AND DISCUSSION: This 78-year-old gentleman who presented with multiple complex medical issues is improving gradually at this time. I discussed the case with Dr. Lugo, the surgeon, who recommended the patient be discharged once the patient is stable. I would anticipate probably discharge tomorrow to [facility] in [place] in a stable condition with overall guarded prognosis because of the patient's age and multiple comorbidities, as listed above. Further recommendations to follow. MMODL / IJN: [id number] /
[2019-10-31] MEDS: SODIUM CHLORIDE 0.9% 1,000 ML IV SCH (20:26)
[2019-10-31 20:34] LABS: Glucose,Whole Blood 215 mg/dL (75-99)
[2019-11-01] MEDS: LORazepam 2 MG/ML INJ IV PRN (00:06)
[2019-11-01] MEDS: methylPREDNISolone SOD SUCCI 40 MG/ML 1 ML VIAL IV SCH ×3 (00:06→13:22)
[2019-11-01 05:26] VITALS: BP 118/69; TEMP 98.3
[2019-11-01 07:13] LABS: Glucose,Whole Blood 214 mg/dL (75-99)
[2019-11-01] MEDS: IPRATROPIUM-ALBUTEROL 3 ML NEB INHALATION SCH ×2 (08:12→13:42)
[2019-11-01] MEDS: FORMOTEROL FUMARATE 20 MCG/2 ML NEBU INHALATION SCH (08:12)
[2019-11-01] MEDS: BUDESONIDE 1 MG/2 ML NEBU INHALATION SCH (08:12)
[2019-11-01 08:33] VITALS: PULSE 93
[2019-11-01] MEDS: ESCITALOPRAM 5 MG TAB PO SCH (09:03)
[2019-11-01] MEDS: INSULIN ASPART (NovoLOG) 100 UNIT/ML VIAL SQ SCH ×2 (09:03→13:22)
[2019-11-01] MEDS: HEPARIN SODIUM,PORCINE 5,000 UNIT/ML 1 ML VIAL SQ SCH (09:03)
[2019-11-01] MEDS: FUROSEMIDE 10 MG/ML 4 ML VIAL IV SCH (09:03)
[2019-11-01] MEDS: PANTOPRAZOLE 40 MG TABLET PO SCH (09:03)
[2019-11-01 09:11] LABS: Basophils % (A) 0 %; Eosinophils % (A) 0 %; HCT 33.7 % (39.0-53.0); Lymphocytes # (A) 0.7 k/uL (1.0-4.8); Lymphocytes % (A) 6 %; MCH 29.4 pg (25.0-35.0); MCHC 32.5 g/dL (31.0-37.0); MCV 90.4 fL (80.0-100.0); Mean Platelet Volume 7.4; Monocytes # (A) 0.3 k/uL (0-1.0); Monocytes % (A) 3 %; Neutrophils # (A) 10.3 k/uL (1.3-7.7); Neutrophils % (A) 90 %; Platelet Count 355 k/uL (150-450); RBC 3.73 m/uL (4.30-5.90); RDW 14.8 % (11.5-15.5); WBC 11.4 k/uL (3.8-10.6)
[2019-11-01 09:21] LABS: African American GFR (CKD) >90 (>60 ml/min/1.73 sqM); Anion Gap 7 mmol/L; Blood Urea Nitrogen 34 mg/dL (9-20); Calcium 8.6 mg/dL (8.4-10.2); Carbon Dioxide 27 mmol/L (22-30); Chloride 105 mmol/L (98-107); Glucose 210 mg/dL (74-99); Non-African American GFR(CKD) 82 (>60 ml/min/1.73 sqM); Potassium 3.6 mmol/L (3.5-5.1); Sodium 139 mmol/L (137-145)
[2019-11-01 11:26] VITALS: RESP 17
[2019-11-01 11:30] LABS: Glucose,Whole Blood 168 mg/dL (75-99)
--- NOTE | 2019-11-01 12:20 | P.DS ---
Providers Date of admission: 10/25/19 12:50 Expected date of discharge: 11/01/19 Attending physician: Michele Freeman MD Consults: 10/25/19 14:07 Consult Physician Routine Consulting Provider: Key Lugo Consult Reason/Comments: sbo Do you want consulting provider notified?: Yes Primary care physician: Stated None Hospital Course: Final diagnosis Acute small bowel obstruction, status post exploratory laparotomy as well as release of small bowel obstruction and adhesiolysis Possible upper gastrointestinal bleeding, present on admission, improved History of congestive heart failure acute exacerbation with acute on chronic diastolic dysfunction, ejection fraction 50-55% Bilateral atelectasis, extensive, possible chronic obstructive pulmonary disease, acute exacerbation Dementia Hyperlipidemia Hypertension history of pneumonia History of rheumatoid arthritis and deformities history of bilateral pulmonary fibrosis Bilateral knee pain, degenerative joint disease history of abdominal aortic aneurysm repair history of cholecystectomy history of hernia repair history of degenerative joint disease of a remote history of nicotine dependence Gait dysfunction No code, no CPR, no vent Discharge disposition Patient is being discharged in a stable condition with guarded prognosis to [facility] where he is a resident there. Patient will follow-up with Dr. Lugo upon discharge. Total time taken is 35 minutes. History of present illness This is an 78-year-old male who was recently admitted with acute small bowel obstruction and had exploratory laparotomy and was being closely monitored. Patient will follow-up with Dr. Lugo in the outpatient setting. Patient continues to be slightly confused. Patient is to continue with a low fiber diabetic diet with no use of straws. Patient will also need repeat labs in 2-3 days. Patient will also continue with Lasix 40 mg daily along with potassium supplement of 10 meq daily and broncodilators along with Pulmicort. Currently no reports of chest pain, shortness of breath, or palpitations. Patient is afebrile. No reports of nausea or vomiting and patient is tolerating diet. Guarded prognosis. On exam vital signs are stable. Temp is 98.3 F, pulse is 95, respirations are 22, blood pressure is 118/69, oxygen saturation is 96 % on room air. Cardio S1, S2 are muffled. Respiratory shows diminished breath sounds at the bases with a few scattered rhonchi noted. Abdomen is soft and nontender, status post surgery. Nervous system shows mild diffuse weakness. Please refer to medication reconciliation sheet for a list of medications. Patient Condition at Discharge: Stable Plan - Discharge Summary Discharge Rx Participant: No New Discharge Prescriptions: New Ipratropium-Albuterol Nebulize [Duoneb 0.5 mg-3 mg/3 ml Soln] 3 ml INHALATION RT-TID ml Ipratropium-Albuterol Nebulize [Duoneb 0.5 mg-3 mg/3 ml Soln] 3 ml INHALATION RT-TID PRN ml PRN Reason: Shortness Of Breath Or Wheezing HYDROcodone/APAP 5-325MG [[place] 5-325] 1 each PO Q6HR PRN #4 tab PRN Reason: Pain INSULIN ASPART (NovoLOG) [NovoLOG (formulary)] 0 unit SQ ACHS vial Formoterol Fumarate [Perforomist] 20 mcg INHALATION RT-BID nebu Pantoprazole [Protonix] 40 mg PO BID tablet. Budesonide [Pulmicort] 1 mg INHALATION RT-BID ml Continue Aspirin 81 mg PO DAILY@0900 Polyethylene Glycol 3350 [Miralax] 17 gm PO DAILY PRN PRN Reason: Constipation Multivitamins, Thera [Multivitamin (formulary)] 1 tab PO DAILY@0900 Sennosides-Docusate Sodium [Senokot-S] 2 tab PO DAILY PRN PRN Reason: Constipation Atorvastatin [Lipitor] 40 mg PO DAILY@2100 Bisacodyl 10 mg RECTAL DAILY PRN PRN Reason: Constipation Escitalopram [Lexapro] 5 mg PO DAILY@0900 Famotidine [Pepcid] 40 mg PO DAILY@0900 Loperamide [Imodium] 4 mg PO Q12H PRN PRN Reason: Diarrhea Magnesium Hydroxide [Milk of Magnesia] 1,200 mg PO DAILY PRN PRN Reason: Constipation Magnesium Oxide 400 mg PO DAILY@2100 Melatonin 6 mg PO DAILY@2100 PRN PRN Reason: Insomnia House Supplement 120 ml PO TID ALPRAZolam [Xanax] 0.25 mg PO TID PRN #3 tab PRN Reason: Anxiety Changed Potassium Chloride [Klor-Con 20] 10 meq PO DAILY@0900 #0 Furosemide [Lasix] 40 mg PO DAILY@0900 #0 Discontinued metFORMIN HCL ER [Glucophage Xr] 500 mg PO DAILY@0900 HYDROcodone/APAP 5-325MG [V[place] 5-325] 1 tab PO DAILY PRN PRN Reason: Pain HYDROcodone/APAP 5-325MG [[place] 5-325] 1 tab PO TID PRN PRN Reason: Pain Naproxen [Naprosyn] 500 mg PO DAILY@899,2099 Discharge Medication List Aspirin 81 mg PO DAILY@0900 08/12/16 [History] Multivitamins, Thera [Multivitamin (formulary)] 1 tab PO DAILY@0909/05/18 [History] Polyethylene Glycol 3350 [Miralax] 17 gm PO DAILY PRN 09/05/18 [History] Sennosides-Docusate Sodium [Senokot-S] 2 tab PO DAILY PRN 09/05/18 [History] Atorvastatin [Lipitor] 40 mg PO DAILY@209910/25/19 [History] Bisacodyl 10 mg RECTAL DAILY PRN 10/25/19 [History] Escitalopram [Lexapro] 5 mg PO DAILY@89910/25/19 [History] Famotidine [Pepcid] 40 mg PO DAILY@89910/25/19 [History] House Supplement 120 ml PO TID 10/25/19 [History] Loperamide [Imodium] 4 mg PO Q12H PRN 10/25/19 [History] Magnesium Hydroxide [Milk of Magnesia] 1,200 mg PO DAILY PRN 10/25/19 [History] Magnesium Oxide 400 mg PO DAILY@209910/25/19 [History] Melatonin 6 mg PO DAILY@2099 PRN 10/25/19 [History] ALPRAZolam [Xanax] 0.25 mg PO TID PRN #3 tab 11/01/19 [Rx] Budesonide [Pulmicort] 1 mg INHALATION RT-BID ml 11/01/19 [Rx] Formoterol Fumarate [Perforomist] 20 mcg INHALATION RT-BID nebu 11/01/19 [Rx] Furosemide [Lasix] 40 mg PO DAILY@0900 #0 11/01/19 [Rx] HYDROcodone/APAP 5-325MG [[place] 5-325] 1 each PO Q6HR PRN #4 tab 11/01/19 [Rx] INSULIN ASPART (NovoLOG) [NovoLOG (formulary)] 0 unit SQ ACHS vial 11/01/19 [Rx] Ipratropium-Albuterol Nebulize [Duoneb 0.5 mg-3 mg/3 ml Soln] 3 ml INHALATION RT-TID ml 11/01/19 [Rx] Ipratropium-Albuterol Nebulize [Duoneb 0.5 mg-3 mg/3 ml Soln] 3 ml INHALATION RT-TID PRN ml 11/01/19 [Rx] Pantoprazole [Protonix] 40 mg PO BID tablet. 11/01/19 [Rx] Potassium Chloride [Klor-Con 20] 10 meq PO DAILY@0900 #0 11/01/19 [Rx] Follow up Appointment(s)/Referral(s): Key Lugo, [Doctor of Osteopathic Medicine] - As Needed (Call the office if questions or concerns) Ambulatory/Diagnostic Orders: Basic Metabolic Panel [LAB.AMB] Time Frame: 2 Days, Location: None Selected Complete Blood Count w/diff [LAB.AMB] Time Frame: 2 Days, Location: None Selected Activity/Diet/Wound Care/Special Instructions: Patient is going to [facility] Wash incision daily and cover with a light dressing. The alex may be removed 11-07-2019. Low fiber diet for 2 weeks, then resume normal fiber. Call the office if questions or concerns. Patient is to not use any straws. Activity as tolerated Follow-up with Dr. Lugo Repeat labs in 2-3 days Discharge Disposition: TRANSFER TO SNF/ECF
[2019-11-01] MEDS: D5-0.45% NACL WITH KCL 20MEQ/L 1,000 ML IV SCH (13:15)
[2019-11-01] MEDS: SODIUM CHLORIDE 0.9% 1,000 ML IV SCH (13:23)
[2019-11-01 14:01] VITALS: BMI 24.2
== END 2019-11-01 14:24 | DRG 335 ==
LOC: 5NMEDONC 12:50
PROVIDERS: ADMIT Internal Medicine; ATTEND Internal Medicine
PROC: 0D9670Z Drainage of Stomach with Drainage Device, Via Natural or Artificial Opening (ICD-10-PCS; 2019-10-26)
PROC: 0DN80ZZ Release Small Intestine, Open Approach (ICD-10-PCS; principal; 2019-10-26 09:00)
DX: K56.50 Intestinal adhesions [bands], unspecified as to partial versus complete obstruction (principal); G93.41 Metabolic encephalopathy; I50.33 Acute on chronic diastolic (congestive) heart failure; J98.11 Atelectasis; K92.2 Gastrointestinal hemorrhage, unspecified; J44.1 Chronic obstructive pulmonary disease with (acute) exacerbation; E11.9 Type 2 diabetes mellitus without complications; E78.5 Hyperlipidemia, unspecified; I11.0 Hypertensive heart disease with heart failure; F03.90 Unspecified dementia, unspecified severity, without behavioral disturbance, psychotic disturbance, mood disturbance, and anxiety; Z66 Do not resuscitate; G89.29 Other chronic pain; K21.9 Gastro-esophageal reflux disease without esophagitis; M19.90 Unspecified osteoarthritis, unspecified site; J84.10 Pulmonary fibrosis, unspecified; R26.9 Unspecified abnormalities of gait and mobility; M06.9 Rheumatoid arthritis, unspecified; Z98.890 Other specified postprocedural states; Z79.51 Long term (current) use of inhaled steroids; Z79.82 Long term (current) use of aspirin; Z79.84 Long term (current) use of oral hypoglycemic drugs; Z79.899 Other long term (current) drug therapy; Z81.1 Family history of alcohol abuse and dependence; Z86.79 Personal history of other diseases of the circulatory system; Z87.01 Personal history of pneumonia (recurrent); Z87.891 Personal history of nicotine dependence; Z90.49 Acquired absence of other specified parts of digestive tract; Z82.49 Family history of ischemic heart disease and other diseases of the circulatory system; Z88.0 Allergy status to penicillin
CPT/HCPCS: 71045; 74019; 80048; 80053; 81001; 83735; 84100; 85025; 93005; 94640; 94760